=== PATIENT | male | born 1960 | race African-American/Black ===

== ENCOUNTER 2016-11-21 09:25 | Inpatient (IN) | payer OTHER, MEDICARE ==
[2016-11-21] VITALS (9 sets, daily range): BP systolic 130–194; BP diastolic 50–84; PULSE 74–83; RESP 16–20; TEMP 97.8–98.9; O2SAT 94–100
[~2016-11-21] VITALS: Ht 188 cm; Wt 118.0 kg
[~2016-11-21 09:25] MED LIST: ACYC5OIN4 TOPICAL; ASPI81TA5 PO; BUPR1TAB29 PO; CIAL20TA PO; CYCL1TAB29 PO; FLUT50SP EACH NARE; HYDR-3801 PO; LABE300T PO; MINO2.5T PO; NIFE60TA58 PO; TERA2CAP3 PO
[2016-11-21] MEDS ORDERED: LOSA50TA PO (10:05)
[2016-11-21] MEDS ORDERED: BUPR150T3 PO (10:05)
[2016-11-21] MEDS ORDERED: MIRA0.25 PO (10:05)
[2016-11-21] MEDS ORDERED: BUME2TAB PO (10:05)
[2016-11-21] MEDS ORDERED: PERC5TAB12 PO (10:05)
[2016-11-21] MEDS ORDERED: CLON0.2T PO (10:05)
[2016-11-21] MEDS ORDERED: MIRA3350 PO (10:05)
[2016-11-21] MEDS ORDERED: RANI150T PO (10:05)
[2016-11-21] MEDS ORDERED: SODIUM CHLORIDE 0.9% FLUSH 10 ML FLUSH IVF PRN (10:30)
[2016-11-21] MEDS ORDERED: FAMOTIDINE 20 MG/2 ML VIAL IV PUSH ONE (10:30)
[2016-11-21 10:52] LABS: AUTOMATED NEUTROPHIL # 3.7 TH/MM3 (1.8-7.7); BASOPHIL # 0.1 TH/MM3 (0-0.2); BASOPHIL % 1.2 % (0.0-2.0); EOSINOPHIL # 0.1 TH/MM3 (0-0.4); EOSINOPHIL % 2.5 % (0.0-4.0); LYMPH % 18.4 % (9.0-44.0); MEAN CELL VOLUME 84.4 FL (80.0-100.0); MEAN CORPUSCULAR HEMOGLOBIN 27.7 PG (27.0-34.0); MEAN CORPUSCULAR HGB CONC 32.9 % (32.0-36.0); MONO % 7.1 % (0.0-8.0); NEUT % 70.8 % (16.0-70.0); PLATELET COUNT 194 TH/MM3 (150-450); RED BLOOD COUNT 2.28 MIL/MM3 (4.50-5.90); RED CELL DISTRIBUTION WIDTH 16.2 % (11.6-17.2); WHITE BLOOD COUNT 5.2 TH/MM3 (4.0-11.0)
[2016-11-21 10:54] LABS: BACTERIA, URINE RARE /hpf; BLOOD, URINE NEG (NEG); GLUCOSE,URINE NEG (NEG); KETONE, URINE NEG (NEG); MUCUS URINE FEW /lpf (OCC); NITRITE,URINE NEG (NEG); URINE COLOR LIGHT-YELLOW (YELLW/STRAW)
[2016-11-21 10:59] LABS: HEMO FLAGS DIFF FINAL
[2016-11-21 11:01] LABS: HEMATOCRIT 19.2 % (39.0-51.0)
[2016-11-21 11:02] LABS: APTT (PATIENT) 27.6 SEC (24.3-30.1); PROTHROMBIN TIME - PATIENT 10.9 SEC (9.8-11.6)
[2016-11-21 11:02] LABS: COMMENT (UR) CULT NOT INDICATED; CULTURE IF INDICATED CULT NOT INDICATED
--- NOTE | 2016-11-21 11:23 | PD ---
HPI Chief Complaint: GI Complaint Time Seen by Provider: 10:22 Travel History International Travel<30 days: No Contact w/Intl Traveler<30days: No Traveled to known affect area: No History of Present Illness HPI This is a 56-year-old male who presents today with complaints of weakness and dizziness and shortness of breath on exertion. The patient also reports black tarry stools times one and half days. The patient has a history of end-stage renal disease and is dialysis dependent. Last dialysis was yesterday. She denies chest pain, chest pressure. He reports shortness of breath on exertion. The patient takes intermittent aspirin. He is not on any other blood thinners. No history of previous GI bleed. He reports he was in the process of getting set up for a GI appointment and when the GI physician her that he was having black tarry stools, she is recommended he come to the ER for evaluation. PFSH Past Medical History Diminished Hearing: No Hypertension: Yes Renal Failure: Yes (DIALYSIS M,W,F) Ulcer: Yes Tetanus Vaccination: > 5 Years Influenza Vaccination: No Past Surgical History Appendectomy: Yes Other Surgery: Yes (AV FISTULA L UPPER ARM) Social History Alcohol Use: No Tobacco Use: No Substance Use: No Allergies-Medications (Allergen,Severity, Reaction): Coded Allergies: cefazolin (Unverified Allergy, Severe, 11/21/16) morphine (Unverified Allergy, Severe, 11/21/16) Reported Meds & Prescriptions Reported Meds & Active Scripts Active Reported Ranitidine (Ranitidine HCl) 150 Mg Tab 150 Mg PO BID Percocet (Oxycodone-Acetaminophen) 5-325 mg Tab 1 Tab PO Q8HR PRN Mirapex (Pramipexole Dihydrochloride) 0.25 Mg Tab 0.25 Mg PO HS Miralax Powder (Polyethylene Glycol 3350 Powder) 17 Gm Powd 17 Gm PO DAILY Mix and dissolve one measuring cap-ful (17 grams) in water or juice. Losartan (Losartan Potassium) 50 Mg Tab 50 Mg PO BID Clonidine (Clonidine HCl) 0.2 Mg Tab 0.2 Mg PO BID Bupropion HCl ER 24 HR (Bupropion HCl) 150 Mg Tab 150 Mg PO DAILY Bumetanide 2 Mg Tab 2 Mg PO DAILY Fluticasone Nasal [place] 50 Mcg/Act Naspr 50 Mcg EACH NARE BID 50 mcg/spray Flexeril (Cyclobenzaprine HCl) 10 Mg Tab 10 Mg PO TID PRN Minoxidil 2.5 Mg Tab 2.5 Mg PO BID Nifedipine ER 24 HR (Nifedipine) 60 Mg Tab 60 Mg PO BID Acyclovir Topical (Acyclovir) 5% Oint 1 Applic TOPICAL Q3HR Labetalol (Labetalol HCl) 300 Mg Tab 300 Mg PO TID Hydralazine (Hydralazine HCl) 100 Mg Tab 100 Mg PO TID Take with meals Aspirin DR (Aspirin) 81 Mg Tabdr 81 Mg PO DAILY Cialis (Tadalafil) 20 Mg Tab 20 Mg PO DAILY PRN Do not exceed 1 dose/day. Review of Systems Except as stated in HPI: all other systems reviewed are Neg General / Constitutional: No: Fever, Chills HENT: Positive: Lightheadedness, No: Headaches, Neck Pain Cardiovascular: Positive: Tachycardia, No: Chest Pain or Discomfort, Palpitations Respiratory: No: Cough, Shortness of Breath Gastrointestinal: Positive: Other (black colored stools), No: Nausea, Vomiting , Abdominal Pain Genitourinary: Positive: Other (increased urine output), No: Dysuria Musculoskeletal: Positive: Weakness (generalized), No: Pain Neurologic: Positive: Weakness (generalized), Dizziness, No: Headache, Change in Mentation Physical Exam Narrative GENERAL: Well-developed well-nourished gentleman in no acute rest her distress. SKIN: Focused skin assessment warm/dry. HEAD: Atraumatic. Normocephalic. EYES: Pupils equal and round. No scleral icterus. No injection or drainage. ENT: No nasal bleeding or discharge. Mucous membranes pink and pale. Supple. NECK: Trachea midline. No JVD. CARDIOVASCULAR: Tachycardic with normal rhythm.. No murmur appreciated. RESPIRATORY: No accessory muscle use. Clear to auscultation. Breath sounds equal bilaterally. GASTROINTESTINAL: Abdomen soft, non-tender, nondistended. Hepatic and splenic margins not palpable. RECTAL EXAM: No masses or tenderness, stool is black. Heme positive. MUSCULOSKELETAL: No obvious deformities. No clubbing. No cyanosis. No edema. There is an 80 fistula in his left before meals. Positive thrill. NEUROLOGICAL: Awake and alert. No obvious cranial nerve deficits. Motor grossly within normal limits. Normal speech. PSYCHIATRIC: Appropriate mood and affect; insight and judgment normal. Data Data Last Documented VS Vital Signs Date Time Temp Pulse Resp B/P (MAP) Pulse Ox O2 Delivery O2 Flow Rate FiO2 11/21/16 09:30 98.0 75 16 155/71 (99) 100 Orders Orders Complete Blood Count With Diff (11/21/16 10:22) Comprehensive Metabolic Panel (11/21/16 10:22) Prothrombin Time / Inr (Pt) (11/21/16 10:22) Act Partial Throm Time (Ptt) (11/21/16 10:22) Urinalysis - C+S If Indicated (11/21/16 10:22) Type And Screen (11/21/16 10:22) Ecg Monitoring (11/21/16 10:22) Iv Access Insert/Monitor (11/21/16 10:22) Oximetry (11/21/16 10:22) Sodium Chloride 0.9% Flush (Ns Flush) (11/21/16 10:30) Famotidine Inj (Pepcid Inj) (11/21/16 10:30) Red Blood Cells (Rbc) (11/21/16 11:19) Blood Product Administration (11/21/16 11:19) Sodium Chlor 0.9% 250 Ml Inj (Ns 250 Ml (11/21/16 11:30) Diphenhydramine Inj (Benadryl Inj) (11/21/16 11:45) Sodium Chloride 0.9... W/Pantoprazole In (11/21/16 12:01) Consult Gastroenterology (11/21/16 ) (Hub Use Only)Inp Phy Cons/Ref (11/21/16 ) Admit To Inpatient (11/21/16 ) Code Status (11/21/16 12:32) Vital Signs (Adult) Q4H (11/21/16 12:32) Activity Oob With Assistance (11/21/16 12:32) Screenplay Writer / Telemetry .CONTINUOUS (11/21/16 12:32) Diet Clear Liquid (11/21/16 Lunch) Sodium Chloride 0.9% Flush (Ns Flush) (11/21/16 12:45) Sodium Chloride 0.9% Flush (Ns Flush) (11/21/16 21:00) Acetaminophen (Tylenol) (11/21/16 12:45) Ondansetron Inj (Zofran Inj) (11/21/16 12:45) Basic Metabolic Panel (Bmp) (11/22/16 06:00) Chest, Single Ap (11/21/16 12:32) Electrocardiogram (11/21/16 12:32) Pt Request For Service (11/21/16 12:32) Scd Bilateral/Knee High [place].BID (11/21/16 12:32) Naloxone Inj (Narcan Inj) (11/21/16 12:45) Magnesium Hydroxide Liq (Milk Of Magnesi (11/21/16 12:45) Inpatient Certification (11/21/16 ) Complete Blood Count With Diff (11/21/16 16:00) Complete Blood Count With Diff (11/22/16 16:00) Complete Blood Count With Diff (11/23/16 16:00) Magnesium (Mg) (11/22/16 06:00) Consult Nephrology (11/21/16 ) Admit Order (Ed Use Only) (11/21/16 12:34) Labs Laboratory Tests Test 11/21/16 10:35 11/21/16 10:40 White Blood Count 5.2 TH/MM3 Red Blood Count 2.28 MIL/MM3 Hemoglobin 6.3 GM/DL Hematocrit 19.2 % Mean Corpuscular Volume 84.4 FL Mean Corpuscular Hemoglobin 27.7 PG Mean Corpuscular Hemoglobin Concent 32.9 % Red Cell Distribution Width 16.2 % Platelet Count 194 TH/MM3 Mean Platelet Volume 8.3 FL Neutrophils (%) (Auto) 70.8 % Lymphocytes (%) (Auto) 18.4 % Monocytes (%) (Auto) 7.1 % Eosinophils (%) (Auto) 2.5 % Basophils (%) (Auto) 1.2 % Neutrophils # (Auto) 3.7 TH/MM3 Lymphocytes # (Auto) 1.0 TH/MM3 Monocytes # (Auto) 0.4 TH/MM3 Eosinophils # (Auto) 0.1 TH/MM3 Basophils # (Auto) 0.1 TH/MM3 CBC Comment DIFF FINAL Differential Comment Prothrombin Time 10.9 SEC Prothromb Time International Ratio 1.0 RATIO Activated Partial Thromboplast Time 27.6 SEC Blood Urea Nitrogen 104 MG/DL Creatinine 9.00 MG/DL Random Glucose 97 MG/DL Total Protein 5.6 GM/DL Albumin 2.8 GM/DL Calcium Level 7.1 MG/DL Alkaline Phosphatase 60 U/L Aspartate Amino Transf (AST/SGOT) 11 U/L Alanine Aminotransferase (ALT/SGPT) 21 U/L Total Bilirubin 0.3 MG/DL Sodium Level 139 MEQ/L Potassium Level 4.0 MEQ/L Chloride Level 104 MEQ/L Carbon Dioxide Level 23.6 MEQ/L Anion Gap 11 MEQ/L Estimat Glomerular Filtration Rate 7 ML/MIN Protein Corrected Calcium 7.9 MG/DL Urine Color LIGHT-YELLOW Urine Turbidity CLEAR Urine pH 5.0 Urine Specific [place] 1.010 Urine Protein 30 mg/dL Urine Glucose (UA) NEG mg/dL Urine Ketones NEG mg/dL Urine Occult Blood NEG Urine Nitrite NEG Urine Bilirubin NEG Urine Urobilinogen LESS THAN 2.0 MG/DL Urine Leukocyte Esterase NEG Urine RBC LESS THAN 1 /hpf Urine WBC LESS THAN 1 /hpf Urine Bacteria RARE /hpf Urine Mucus FEW /lpf Microscopic Urinalysis Comment CULT NOT INDICATED MDM Medical Decision Making Medical Screen Exam Complete: Yes Emergency Medical Condition: Yes Differential Diagnosis GI bleed versus metabolic derangement versus anemia versus Narrative Course This is a 56-year-old male with history of renal failure, dialysis dependent, who presents here with black tarry stools. The patient reports one to 2 days of black tarry stool. He apparently was in the process of getting a GI follow up when the physician at the GI center heard his symptoms, told him to come in and be seen in the emergency department. He presents today with dizziness, exertional shortness breath, lightheadedness and the dark stools. Rectal examination confirms heme positive stool. Hemoglobin is 6.3. He's been typed and crossed for 2 units. He'll be transfused those 2 units of blood. He's been given IV Pepcid 20 mg one dose. There is a call out to the on-call planning feeder. There is also a call out to the [facility] hospitalist. Diagnosis Primary Impression: GI (gastrointestinal hemorrhage) Additional Impressions: Symptomatic anemia end-stage renal disease, dialysis dependent Hypertension Admitting Information Admitting Physician Requests: Admit Dustin Burton MD Nov 21, 2016 11:23
[2016-11-21] MEDS ORDERED: SODIUM CHLOR 0.9% 250 ML INJ 250 ML IV ONE (11:30)
[2016-11-21 11:38] LABS: BICARBONATE 23.6 MEQ/L (21.0-32.0); CALCIUM-PROTEIN CORRECTED 7.9 MG/DL (8.5-10.1); TOTAL BILIRUBIN ADULT 0.3 MG/DL (0.2-1.0)
[2016-11-21] MEDS ORDERED: diphenhydrAMINE HCL 50 MG/ML VIAL IV PUSH ONE (11:45)
--- NOTE | 2016-11-21 12:43 | PD.CONS ---
HPI History of Present Illness This is a 56 year old with ESRD who was told to go to the emergency room for evaluation of nausea/vomiting with dark emesis and dark stools. He gets HD on Mondays, Wednesdays, and Fridays. He started having nausea and vomiting night. He reports that the dark tarry stool also began night. He initially, was not able to keep anything down, but states that he is now tolerating po and he last vomited yesterday around 9:45 am prior to dialysis. He denies any abdominal pain, but states that he has frequent reflux/ heartburn and takes Ranitidine for that. He states that he has had generalized weakness and this has been worsening since evening. He denies any history of peptic ulcer disease. Last EGD/Colonoscopy (01/22/16) for anemia --- > prominent ileocecal valve, four polyps- two removed by snare and 2 fulgurated in the sigmoid, small hemorrhoid, mild gastritis. Pathology revealed antral and fundic type mucosa with mild chronic gastritis, negative for intestinal metaplasia, no helicobacter like bacteria, prominent ileocecal valve normal colonic mucosa, negative for inflammation, viral inclusions, lymphocytic or collagenous colitis, colonic mucosa with a bland smooth muscle proliferation consistent with a leiomyoma. Repeat colonoscopy recommended for 6 months. He denies any history of GI bleeding. He does not take any Aleve/Motrin/Advil, but takes an occasional aspirin. He does not drink ETOH. Of note, he was recently seen in the office on 11/20/16 for possible GIB/heartburn. EGD was scheduled as outpatient. (Sheridan Pastrana) PFSH Past Medical History ESRD, HD Mondays, Wednesdays, Fridays HTN Hx rib fracture Cerebral contusions Right wrist fracture Anemia of chronic disease COPD Chronic back pain Enlarged prostate Depression Osteoarthritis Past Surgical History ORIF right wrist Appendectomy AV fistula (Sheridan Pastrana) Coded Allergies: cefazolin (Unverified Allergy, Severe, 11/21/16) morphine (Unverified Allergy, Severe, 11/21/16) Medications Allergies Coded Allergies Type Severity Reaction Last Updated Verified cefazolin Allergy Severe 11/21/16 No morphine Allergy Severe 11/21/16 No Active Scripts Medications Dose Route/Sig Max Daily Dose Days Date Category Dose Instructions Ranitidine (Ranitidine HCl) 150 Mg Tab 150 Mg PO BID 11/21/16 Reported Percocet (Oxycodone-Acetaminophen) 5-325 mg Tab 1 Tab PO Q8HR PRN 11/21/16 Reported Mirapex (Pramipexole Dihydrochloride) 0.25 Mg Tab 0.25 Mg PO HS 11/21/16 Reported Miralax Powder (Polyethylene Glycol 3350 Powder) 17 Gm Powd 17 Gm PO DAILY 11/21/16 Reported Mix and dissolve one measuring cap-ful (17 grams) in water or juice. Losartan (Losartan Potassium) 50 Mg Tab 50 Mg PO BID 11/21/16 Reported Clonidine (Clonidine HCl) 0.2 Mg Tab 0.2 Mg PO BID 11/21/16 Reported Bupropion HCl ER 24 HR (Bupropion HCl) 150 Mg Tab 150 Mg PO DAILY 11/21/16 Reported Bumetanide 2 Mg Tab 2 Mg PO DAILY 11/21/16 Reported Fluticasone Nasal [place] 50 Mcg/Act Naspr 50 Mcg EACH NARE BID 07/09/16 Reported 50 mcg/spray Flexeril (Cyclobenzaprine HCl) 10 Mg Tab 10 Mg PO TID 07/09/16 Reported Minoxidil 2.5 Mg Tab 2.5 Mg PO BID 07/09/16 Reported Nifedipine ER 24 HR (Nifedipine) 60 Mg Tab 60 Mg PO BID 07/09/16 Reported Acyclovir Topical (Acyclovir) 5% Oint 1 Applic TOPICAL Q3HR 07/09/16 Reported Labetalol (Labetalol HCl) 300 Mg Tab 300 Mg PO TID 07/09/16 Reported Hydralazine (Hydralazine HCl) 100 Mg Tab 100 Mg PO TID 07/09/16 Reported Take with meals Aspirin DR (Aspirin) 81 Mg Tabdr 81 Mg PO DAILY 07/09/16 Reported Cialis (Tadalafil) 20 Mg Tab 20 Mg PO DAILY PRN 07/09/16 Reported Do not exceed 1 dose/day. Family History Mother from colon cancer at age 50. Social History No tobacco No ETOH No illicit drug use (Sheridan Pastrana) Review of Systems Constitutional: COMPLAINS OF: Fatigue, DENIES: Weight loss, Change in appetite Respiratory: DENIES: Cough Cardiovascular: COMPLAINS OF: Lower Extremity Edema, DENIES: Chest pain Gastrointestinal: COMPLAINS OF: Black stools, Nausea, Vomiting, Heartburn, Hematemesis, DENIES: Abdominal pain, Bloody stools, Constipation, Diarrhea, Swelling of Abdomen Musculoskeletal: DENIES: Joint pain Integumentary: DENIES: Abnormal pigmentation Hematologic/lymphatic: DENIES: Bruising Neurologic: DENIES: Headache Psychiatric: DENIES: Confusion (Sheridan Pastrana AGRICULTURE EXTENSION SPECIALIST) GI Exam Vitals I&O Vital Signs Date Time Temp Pulse Resp B/P (MAP) Pulse Ox O2 Delivery O2 Flow Rate FiO2 11/21/16 09:30 98.0 75 16 155/71 (99) 100 Laboratory Test 11/21/16 10:35 11/21/16 10:40 White Blood Count 5.2 TH/MM3 Red Blood Count 2.28 MIL/MM3 Hemoglobin 6.3 GM/DL Hematocrit 19.2 % Mean Corpuscular Volume 84.4 FL Mean Corpuscular Hemoglobin 27.7 PG Mean Corpuscular Hemoglobin Concent 32.9 % Red Cell Distribution Width 16.2 % Platelet Count 194 TH/MM3 Mean Platelet Volume 8.3 FL Neutrophils (%) (Auto) 70.8 % Lymphocytes (%) (Auto) 18.4 % Monocytes (%) (Auto) 7.1 % Eosinophils (%) (Auto) 2.5 % Basophils (%) (Auto) 1.2 % Neutrophils # (Auto) 3.7 TH/MM3 Lymphocytes # (Auto) 1.0 TH/MM3 Monocytes # (Auto) 0.4 TH/MM3 Eosinophils # (Auto) 0.1 TH/MM3 Basophils # (Auto) 0.1 TH/MM3 CBC Comment DIFF FINAL Differential Comment Prothrombin Time 10.9 SEC Prothromb Time International Ratio 1.0 RATIO Activated Partial Thromboplast Time 27.6 SEC Blood Urea Nitrogen 104 MG/DL Creatinine 9.00 MG/DL Random Glucose 97 MG/DL Total Protein 5.6 GM/DL Albumin 2.8 GM/DL Calcium Level 7.1 MG/DL Alkaline Phosphatase 60 U/L Aspartate Amino Transf (AST/SGOT) 11 U/L Alanine Aminotransferase (ALT/SGPT) 21 U/L Total Bilirubin 0.3 MG/DL Sodium Level 139 MEQ/L Potassium Level 4.0 MEQ/L Chloride Level 104 MEQ/L Carbon Dioxide Level 23.6 MEQ/L Anion Gap 11 MEQ/L Estimat Glomerular Filtration Rate 7 ML/MIN Protein Corrected Calcium 7.9 MG/DL Urine Color LIGHT-YELLOW Urine Turbidity CLEAR Urine pH 5.0 Urine Specific [place] 1.010 Urine Protein 30 mg/dL Urine Glucose (UA) NEG mg/dL Urine Ketones NEG mg/dL Urine Occult Blood NEG Urine Nitrite NEG Urine Bilirubin NEG Urine Urobilinogen LESS THAN 2.0 MG/DL Urine Leukocyte Esterase NEG Urine RBC LESS THAN 1 /hpf Urine WBC LESS THAN 1 /hpf Urine Bacteria RARE /hpf Urine Mucus FEW /lpf Microscopic Urinalysis Comment CULT NOT INDICATED Physical Examination HEENT: Normocephalic; atraumatic; no jaundice. CHEST: CTA CARDIAC: RRR. ABDOMEN: Soft, nondistended, nontender; no hepatosplenomegaly; bowel sounds are present in all four quadrants. EXTREMITIES: BLE edema. SKIN: Normal; no rash; no jaundice. 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 (Sheridan Pastrana) Assessment and Plan Plan ASSESSMENT: - Upper GIB with dark emesis and melanotic stool. Pt reports nausea/vomiting with dark emesis and dark tarry stool since . No further vomiting since yesterday 9:45 am. HH 6.3/19.2. 2units PRBC ordered. Add Protonix Gtt. Clear liquids. - GERD. PPI - Severe anemia, acute blood loss. Baseline Hgb ~10.0. HH 6.3/19.2. EGD/ Colonoscopy (01/22/16) for anemia ---> prominent ileocecal valve, four polyps- two removed by snare and 2 fulgurated in the sigmoid, small hemorrhoid, mild gastritis. Pathology revealed antral and fundic type mucosa with mild chronic gastritis, negative for intestinal metaplasia, no helicobacter like bacteria, prominent ileocecal valve normal colonic mucosa, negative for inflammation, viral inclusions, lymphocytic or collagenous colitis, colonic mucosa with a bland smooth muscle proliferation consistent with a leiomyoma. Repeat colonoscopy recommended for 6 months. - Prominent ileocecal valve. Path with normal colonic mucosa. Was due for repeat colonoscopy in July of 2016. D/W patient/- okay with having colonoscopy with egd tomorrow. - ESRD. HD Mondays/Wednesdays/Fridays - HTN, COPD, per attending. PLAN: - Plan for egd/colonoscopy in am - Obtain consents - Clear liquids - NPO after MN - Golytely prep - 2 units PRBC - Monitor HH - Transfuse as necessary - NGT to LIWS if n/v - Notify GI of active bleeding - Supportive care - Further recommendations to follow based on results of above - Pt seen and examined by Dr. Zavala and myself and this note is written on his behalf (Sheridan Pastrana) Physician Comments Seen and examined with NICOLAS, no active bleeding at this time. Egd/colonoscopy planned. Will follow, thankyou (Vijay Zavala MD) Sheridan Pastrana Nov 21, 2016 12:43 Vijay Zavala MD Nov 21, 2016 15:39
[2016-11-21] MEDS ORDERED: MAGNESIUM HYDROXIDE SUSP 30 ML CUP PO PRN (12:45)
[2016-11-21] MEDS ORDERED: CYCLOBENZAPRINE HCL 10 MG TAB PO PRN (12:45)
[2016-11-21] MEDS ORDERED: ACETAMINOPHEN 325 MG TAB PO PRN ×2 (12:45→13:00)
[2016-11-21] MEDS ORDERED: SODIUM CHLORIDE 0.9% FLUSH 10 ML FLUSH IV FLUSH PRN ×2 (12:45→13:00)
[2016-11-21] MEDS ORDERED: NALOXONE HCL 0.4 MG/ML AMP IV PUSH PRN (12:45)
[2016-11-21] MEDS: PANTOPRAZOLE INJ 80 MG in SODIUM CHLORIDE 0.9% INJ 100 ML IV SCH ×2 (12:55→21:20)
[2016-11-21] MEDS ORDERED: SODIUM CHLOR 0.9% 1000 ML INJ 1,000 ML OTHER PRN ×2 (12:56)
[2016-11-21] MEDS ORDERED: SODIUM CHLOR 0.9% 1000 ML INJ 1,000 ML IV PRN (12:56)
[2016-11-21] MEDS ORDERED: GENTAMICIN SULFATE (DIALYSIS USE ONLY) 20 MG/2 ML VIAL OTHER PRN (13:00)
[2016-11-21] MEDS ORDERED: HEPARIN SODIUM - IV 10,000 UNITS/10 ML VIAL IV FLUSH PRN (13:00)
[2016-11-21] MEDS ORDERED: NITROGLYCERIN 0.4 MG SL 25 TABS/BTL SL PRN (13:00)
[2016-11-21] MEDS: LABETALOL HCL 300 MG TAB PO SCH ×3 (13:00→20:12)
[2016-11-21] MEDS ORDERED: GELATIN 12 MM/7 MM FOAM TOP PRN (13:00)
[2016-11-21] MEDS ORDERED: cloNIDine HCL 0.1 MG TAB PO PRN (13:00)
[2016-11-21] MEDS ORDERED: ALBUMIN 25% INJ 100 ML IV PRN (13:00)
[2016-11-21] MEDS ORDERED: HEPARIN SODIUM - IV 10,000 UNITS/10 ML VIAL PRN (13:00)
[2016-11-21] MEDS ORDERED: MANNITOL 12.5 GM/50 ML VIAL IV PRN (13:00)
[2016-11-21] MEDS ORDERED: ONDANSETRON HCL 4 MG/2 ML VIAL IV PUSH PRN (13:00)
[2016-11-21] MEDS: hydrALAZINE HCL 100 MG TAB PO SCH ×3 (13:00→20:12)
--- NOTE | 2016-11-21 13:25 | RADRPT ---
EXAM DATE/TIME: 11/21/2016 12:51 [facility] COMPARISON: No previous studies available for comparison. INDICATIONS : Short of breath. MEDICAL HISTORY : None. SURGICAL HISTORY : None. ENCOUNTER: Initial ACUITY: 1 day PAIN SCORE: 0/10 LOCATION: Bilateral chest FINDINGS: The cardiac silhouette is enlarged in transverse diameter. The lungs are free of acute parenchymal op acity. No effusions are identified. Osseous structures are intact. CONCLUSION: Cardiomegaly. No acute cardiopulmonary disease. Vijay Styles MD on November 21, 2016 at 13:24 Board Certified Radiologist. This report was verified electronically.
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
[2016-11-21] MEDS ORDERED: PANTOPRAZOLE INJ 80 MG in SODIUM CHLORIDE 0.9% INJ 100 ML IV SCH (14:00)
--- NOTE | 2016-11-21 14:31 | EKG ---
Date Performed: 11/21/2016 Time Performed: 13:04:02 PTAGE: 56 years EKG: Sinus rhythm NONSPECIFIC T-WAVE ABNORMALITY BORDERLINE ECG NO PREVIOUS TRACING DOCTOR: Michael Martinez Interpretating Date/Time 11/21/2016 14:30:54
[2016-11-21] MEDS ORDERED: PEG (High)/E-LYTE SOLN 4000 ML BTL PO ONE (16:00)
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
[2016-11-21] MEDS: FAMOTIDINE 20 MG TAB PO SCH (20:09)
[2016-11-21] MEDS: NIFEdipine 60 MG SUSTAINED RELEASE TAB PO SCH (20:12)
[2016-11-21] MEDS: LOSARTAN 50 MG TAB PO SCH (20:12)
[2016-11-21] MEDS: PRAMIPEXOLE DIHYDROCHLORIDE 0.25 MG TAB PO SCH (20:13)
[2016-11-21] MEDS: MINOXIDIL 2.5 MG TAB PO SCH (20:13)
[2016-11-21] MEDS: cloNIDine HCL 0.2 MG TAB PO SCH (20:14)
[2016-11-21] MEDS: diphenhydrAMINE HCL 25 MG CAP PO PRN (20:21)
[2016-11-21 21:07] LABS: BLOOD, URINE NEG (NEG); GLUCOSE,URINE NEG (NEG); KETONE, URINE NEG (NEG); NITRITE,URINE NEG (NEG); SQUAMOUS EPITHELIAL CELL URINE <1 /hpf (0-5); URINE COLOR LIGHT-YELLOW (YELLW/STRAW)
[2016-11-21 21:14] LABS: COMMENT (UR) CULT NOT INDICATED; CULTURE IF INDICATED CULT NOT INDICATED
[2016-11-21] MEDS: SODIUM CHLORIDE 0.9% FLUSH 10 ML FLUSH IV FLUSH SCH (21:20)
[2016-11-21 21:25] LABS: AUTOMATED NEUTROPHIL # 3.4 TH/MM3 (1.8-7.7); BASOPHIL # 0.1 TH/MM3 (0-0.2); BASOPHIL % 1.2 % (0.0-2.0); EOSINOPHIL # 0.2 TH/MM3 (0-0.4); EOSINOPHIL % 3.5 % (0.0-4.0); HEMO FLAGS DIFF FINAL; LYMPH % 30.2 % (9.0-44.0); LYMPHOCYTE # 1.9 TH/MM3 (1.0-4.8); MEAN CELL VOLUME 84.2 FL (80.0-100.0); MEAN CORPUSCULAR HEMOGLOBIN 28.2 PG (27.0-34.0); MEAN CORPUSCULAR HGB CONC 33.5 % (32.0-36.0); MONO % 11.1 % (0.0-8.0); PLATELET COUNT 179 TH/MM3 (150-450); RED BLOOD COUNT 2.62 MIL/MM3 (4.50-5.90); RED CELL DISTRIBUTION WIDTH 15.7 % (11.6-17.2); WHITE BLOOD COUNT 6.3 TH/MM3 (4.0-11.0)
[2016-11-21] MEDS: ONDANSETRON HCL 4 MG/2 ML VIAL IVP PRN (23:39)
[2016-11-22] VITALS (12 sets, daily range): BP systolic 115–151; BP diastolic 57–77; PULSE 66–88; RESP 18–21; TEMP 97.4–98; O2SAT 95–100
[2016-11-22] MEDS ORDERED: SODIUM CHLOR 0.9% 250 ML INJ 250 ML IV ONE (00:15)
[2016-11-22] MEDS ORDERED: FUROSEMIDE 20 MG/2 ML VIAL IV PUSH SCH (00:15)
[2016-11-22] MEDS ORDERED: ACETAMINOPHEN 325 MG TAB PO PRN (00:15)
[2016-11-22] MEDS ORDERED: diphenhydrAMINE HCL 25 MG CAP PO PRN (00:15)
[2016-11-22] MEDS: SODIUM CHLORIDE 0.9% FLUSH 10 ML FLUSH IV FLUSH SCH ×2 (07:59→21:02)
[2016-11-22] MEDS: FAMOTIDINE 20 MG TAB PO SCH (08:00)
[2016-11-22] MEDS: BUMETANIDE 1 MG TAB PO SCH (08:00)
[2016-11-22] MEDS: LABETALOL HCL 300 MG TAB PO SCH ×3 (08:00→17:57)
[2016-11-22] MEDS: MINOXIDIL 2.5 MG TAB PO SCH ×2 (08:01→21:01)
[2016-11-22] MEDS: hydrALAZINE HCL 100 MG TAB PO SCH ×3 (08:01→17:57)
[2016-11-22] MEDS: NIFEdipine 60 MG SUSTAINED RELEASE TAB PO SCH ×2 (08:01→21:01)
[2016-11-22] MEDS: buPROPion HCL 150 MG SUSTAINED RELEASE TAB PO SCH (08:01)
[2016-11-22] MEDS: LOSARTAN 50 MG TAB PO SCH ×2 (08:02→21:01)
[2016-11-22] MEDS: cloNIDine HCL 0.2 MG TAB PO SCH ×2 (08:02→21:00)
[2016-11-22] MEDS: POLYETHYLENE GLYCOL 17 GM PKG PO SCH (08:02)
[2016-11-22] MEDS ORDERED: ASPIRIN EC 81 MG TABEC PO SCH (09:00)
[2016-11-22] MEDS: diphenhydrAMINE HCL 25 MG CAP PO PRN ×2 (09:16→23:47)
[2016-11-22] MEDS: PANTOPRAZOLE INJ 80 MG in SODIUM CHLORIDE 0.9% INJ 100 ML IV SCH (09:16)
--- NOTE | 2016-11-22 10:30 | HHI.NPPN ---
Subjective Additional Remarks No acute complaints, tired this morning - for endoscopy today Objective Data Data Vital Signs Date Time Temp Pulse Resp B/P (MAP) Pulse Ox O2 Delivery O2 Flow Rate FiO2 11/22/16 08:00 97.6 68 20 151/70 (97) 95 11/22/16 05:30 97.6 80 18 146/70 (95) 96 11/22/16 05:13 98.0 77 20 144/77 (99) 96 11/22/16 04:50 97.5 79 20 144/62 96 11/22/16 01:42 97.8 88 20 134/65 100 11/22/16 01:16 97.4 81 20 135/65 97 11/22/16 00:00 97.4 77 21 136/61 (86) 98 11/21/16 20:56 94 21 11/21/16 20:00 98.9 79 20 182/78 (112) 94 11/21/16 20:00 78 11/21/16 17:17 98.2 83 20 130/50 95 11/21/16 16:00 98.2 83 20 130/50 (76) 95 11/21/16 16:00 98.2 83 20 130/50 95 11/21/16 13:45 97.8 80 20 194/84 (120) 95 11/21/16 13:20 11/21/16 13:07 80 16 175/83 (113) 97 Room Air 11/21/16 13:04 98.6 75 20 175/83 98 11/21/16 12:50 98.6 74 20 184/84 96 -: 11/21/16210611/21/16 1035 Physical Exam General Appearance: Well Developed, Well Nourished, No Acute Distress Eyes Eye Exam: Pupils Equal Throat Throat Exam: Oral Mucosa [place] & Moist Neck Neck Exam: Neck Supple Pulmonary Resp Exam: Clear Bilaterally Cardiology CV Exam: Regular, Normal Sinus Rhythm Gastrointestinal/Abdomen GI Exam: Soft, Non-Tender, Bowel Sounds Present Integumentary Skin Exam: Warm, Dry, Intact Extremeties Extremities Exam: Moderate Edema Neurologic Neuro Exam: Alert, Awake, Oriented, Speech Clear Psychiatric Psych Exam: Appropriate Responses Assessment/Plan Problem List: (1) ESRD (end stage renal disease) on dialysis ICD Codes: N18.6 - End stage renal disease; Z99.2 - Dependence on renal dialysis Status: Acute Plan: ESRD MWF - follows with [facility]. Bar in [facility]. Last HD done outpatient Wednesday. Volume status, electrolytes stable - next HD tomorrow, continue MWF HD. He has had an elevated BUN in the setting of GI bleed. Chronic lower extremity edema - on bumex Had some dysuria yesterday -resolved now, urine cultures negative (2) GI (gastrointestinal hemorrhage) ICD Codes: K92.2 - Gastrointestinal hemorrhage, unspecified Status: Acute Plan: Transfused yesterday. Plan is for endoscopy and colonoscopy today with GI. Continue to monitor hemoglobin (3) Hypertension ICD Codes: I10 - Essential (primary) hypertension Status: Acute Plan: BP stable. Continue Minoxidil, nifedipine, hydralazine, Losartan and clonidine. Ar Guardado MD Nov 22, 2016 10:30
[2016-11-22] MEDS ORDERED: EPINEPHrine HCL (1:10,000) 1 MG/10 ML SYRINGE OTHER ONE (11:43)
[2016-11-22] MEDS ORDERED: SUGAMMADEX SODIUM 200 MG/2 ML VIAL IV PUSH ONE ×2 (11:48)
--- NOTE | 2016-11-22 11:50 | GIPROC ---
[facility] [address] [facility]. [facility], [address] EGD PROCEDURE REPORT EXAM DATE: 11/22/2016 PATIENT NAME: Ajay Granado MR #: [id number] BIRTHDATE: 1960 ATTENDING: Vijay Zavala MD ORDER #: [id number] OFFICE LEAD: Lillian Rojo STATUS: inpatient INDICATIONS: The patient is a 56 yr old male here for an EGD due to melena and hematemesis PROCEDURE PERFORMED: EGD w/ ablation EGD w/ directed submucosal injection(s), any substance MEDICATIONS: None and Per Anesthesia. TOPICAL ANESTHETIC: CONSENT: The patient understands the risks and benefits of the procedure and understands that these risks include, but are not limited to: sedation, allergic reaction, infection, perforation and/or bleeding. Alternative means of evaluation and treatment include, among others: physical exam, x-rays, and/or surgical intervention. The patient elects to proceed with this endoscopic procedure. medical equipment was checked for proper function. Hand hygiene and appropriate measures for infection prevention was taken. After the risks, benefits and alternatives of the procedure were thoroughly explained, Informed consent was verified, confirmed and timeout was successfully executed by the treatment team. The patient was anesthetized with topical anesthesia and the Pentax [id number] endoscope was introduced through the mouth and advanced to the second portion of the duodenum. Retroflexed views revealed no abnormalities The gastroscope was then slowly withdrawn and removed. ESOPHAGUS: There was [place] Class A esophagitis noted. STOMACH: A single non-bleeding and deep ulcer ranging between 5-9mm in size with heaped up edges and a visible vessel was found in the gastric antrum. Argon plasma coagulation was applied to the site. With complete hemostasis achieved. There was severe gastritis in the gastric antrum. Submucosal injection of 3ml of epinephrine 1:10,000 was performed around the bleeding site with complete hemostasis achieved. DUODENUM: The duodenal mucosa appeared normal in the bulb and second portion of the duodenum. ADVERSE EVENTS: There were no complications. IMPRESSIONS: 1. There was [place] Class A esophagitis noted 2. Single ulcer ranging between 5-9mm in size was found in the gastric antrum; Argon plasma coagulation was applied to the site; with complete hemostasis achieved 3. There was gastritis in the gastric antrum 4. Normal duodenal mucosa in the bulb and second portion of the duodenum 5. Retroflexed views revealed no abnormalities RECOMMENDATIONS: 1. Anti-reflux regimen 2. Continue PPI 3. Avoid NSAIDS PATIENT CONDITION: stable DISPOSITION: Inpatient REPEAT EXAM: Return 1 month EGD Vijay Zavala MD eSigned: Vijay Zavala MD 11/22/2016 11:50 AM cc: PATIENT NAME: Ajay Granado MR#: [id number]
--- NOTE | 2016-11-22 11:52 | GIPROC ---
[facility] [address] [facility]. [facility], [address] COLONOSCOPY PROCEDURE REPORT EXAM DATE: 11/22/2016 PATIENT NAME: Ajay Granado MR #: [id number] BIRTHDATE: 1960 ENDOSCOPIST: Vijay Zavala MD ORDER #: [id number] TRUSTEE OF ESTATE: Lillian Rojo and Ely De León STATUS: inpatient INDICATIONS: The patient is a 56 yr old male here for a colonoscopy due to melena and iron deficiency anemia PROCEDURE PERFORMED: Colonoscopy, incomplete MEDICATIONS: None and Per Anesthesia. PREP QUALITY: poor PREP TYPE:GoLytely ESTIMATED BLOOD LOSS: None CONSENT: The patient understands the risks and benefits of the procedure and understands that these risks include, but are not limited to: sedation, allergic reaction, infection, perforation and/or bleeding. Alternative means of evaluation and treatment include, among others: physical exam, x-rays, and/or surgical intervention. The patient elects to proceed with this endoscopic procedure. medical equipment was checked for proper function. Hand hygiene and appropriate measures for infection prevention was taken. After the risks, benefits and alternatives of the procedure were thoroughly explained, Informed consent was verified, confirmed and timeout was successfully executed by the treatment team. A digital exam revealed external hemorrhoids The Pentax [id number] endoscope was introduced through the anus and advanced to the sigmoid colon. The instrument was then slowly withdrawn as the colon was fully examined. COLON FINDINGS: Poor prep, inadequate exam. Retroflexed views revealed internal hemorrhoids and Retroflexed views revealed medium internal hemorrhoids The scope was then completely withdrawn from the patient and the procedure terminated. ADVERSE EVENTS: There were no complications. IMPRESSIONS: 1. Poor prep, inadequate exam 2. Retroflexed views revealed internal hemorrhoids 3. Retroflexed views revealed medium internal hemorrhoids 4. Revealed external hemorrhoids RECOMMENDATIONS: 1. Continue surveillance 2. Yearly hemoccult RECALL: Return 1 month Colonoscopy Vijay Zavala MD eSigned: Vijay Zavala MD 11/22/2016 11:51 AM cc: Yara Bolanos M.D.
[2016-11-22] MEDS ORDERED: LIDOCAINE HCL 1% PF 5 ML AMPULE OTHER ONE ×2 (12:00)
[2016-11-22] MEDS ORDERED: ePHEDrine/NS 25 MG/5 ML SYR IV ONE ×2 (12:00)
[2016-11-22] MEDS ORDERED: NORMOSOL R INJ 1,000 ML IV ONE (12:00)
[2016-11-22] MEDS ORDERED: PHENYLEPH/NS 1000 MCG/10 ML SYR IV ONE ×2 (12:00)
[2016-11-22] MEDS ORDERED: GLYCOPYRROLATE 1 MG/5 ML SYRINGE IV PUSH ONE ×2 (12:00)
[2016-11-22] MEDS ORDERED: ROCURONIUM INJ 50 MG/5 ML SYRINGE IV PUSH ONE ×2 (12:00)
[2016-11-22] MEDS ORDERED: PROPOFOL 200 MG/20 ML AMP IV ONE ×2 (12:00)
[2016-11-22] MEDS ORDERED: *ONDANSETRON 4 MG VIAL PERIprocedural Use ONLY ONE (12:21)
[2016-11-22] MEDS ORDERED: DO NOT ADM ANY ANTICOAGULANT DRUGS PRN (12:30)
--- NOTE | 2016-11-22 15:14 | HHI.PR ---
Subjective Remarks Patient with complaints of indigestion/burping frequently also has sore throat Objective Vitals Vital Signs Date Time Temp Pulse Resp B/P (MAP) Pulse Ox O2 Delivery O2 Flow Rate FiO2 11/22/16 13:00 97.8 69 20 115/57 (76) 96 11/22/16 12:15 69 14 111/53 (72) 100 Nasal Cannula 2 11/22/16 12:05 69 14 115/54 (74) 95 Nasal Cannula 2 11/22/16 11:55 98.0 74 14 114/85 (95) 96 Nasal Cannula 2 11/22/16 08:00 97.6 68 20 151/70 (97) 95 11/22/16 05:30 97.6 80 18 146/70 (95) 96 11/22/16 05:13 98.0 77 20 144/77 (99) 96 11/22/16 04:50 97.5 79 20 144/62 96 11/22/16 01:42 97.8 88 20 134/65 100 11/22/16 01:16 97.4 81 20 135/65 97 11/22/16 00:00 97.4 77 21 136/61 (86) 98 11/21/16 20:56 94 21 11/21/16 20:00 98.9 79 20 182/78 (112) 94 11/21/16 20:00 78 11/21/16 17:17 98.2 83 20 130/50 95 11/21/16 16:00 98.2 83 20 130/50 (76) 95 11/21/16 16:00 98.2 83 20 130/50 95 11/22/16 11/22/16 11/23/16 14:59 22:59 06:59 Intake Total 100 ml Balance 100 ml Other 100 ml Result Diagram: 11/21/16210611/21/161034 Other Results Laboratory Tests Test 11/21/16 10:35 11/21/16 10:40 11/21/16 18:30 11/21/16 21:07 White Blood Count 5.2 TH/MM3 6.3 TH/MM3 Red Blood Count 2.28 MIL/MM3 2.62 MIL/MM3 Hemoglobin 6.3 GM/DL 7.4 GM/DL Hematocrit 19.2 % 22.0 % Mean Corpuscular Volume 84.4 FL 84.2 FL Mean Corpuscular Hemoglobin 27.7 PG 28.2 PG Mean Corpuscular Hemoglobin Concent 32.9 % 33.5 % Red Cell Distribution Width 16.2 % 15.7 % Platelet Count 194 TH/MM3 179 TH/MM3 Mean Platelet Volume 8.3 FL 8.1 FL Neutrophils (%) (Auto) 70.8 % 54.0 % Lymphocytes (%) (Auto) 18.4 % 30.2 % Monocytes (%) (Auto) 7.1 % 11.1 % Eosinophils (%) (Auto) 2.5 % 3.5 % Basophils (%) (Auto) 1.2 % 1.2 % Neutrophils # (Auto) 3.7 TH/MM3 3.4 TH/MM3 Lymphocytes # (Auto) 1.0 TH/MM3 1.9 TH/MM3 Monocytes # (Auto) 0.4 TH/MM3 0.7 TH/MM3 Eosinophils # (Auto) 0.1 TH/MM3 0.2 TH/MM3 Basophils # (Auto) 0.1 TH/MM3 0.1 TH/MM3 CBC Comment DIFF FINAL DIFF FINAL Differential Comment Prothrombin Time 10.9 SEC Prothromb Time International Ratio 1.0 RATIO Activated Partial Thromboplast Time 27.6 SEC Blood Urea Nitrogen 104 MG/DL Creatinine 9.00 MG/DL Random Glucose 97 MG/DL Total Protein 5.6 GM/DL Albumin 2.8 GM/DL Calcium Level 7.1 MG/DL Alkaline Phosphatase 60 U/L Aspartate Amino Transf (AST/SGOT) 11 U/L Alanine Aminotransferase (ALT/SGPT) 21 U/L Total Bilirubin 0.3 MG/DL Sodium Level 139 MEQ/L Potassium Level 4.0 MEQ/L Chloride Level 104 MEQ/L Carbon Dioxide Level 23.6 MEQ/L Anion Gap 11 MEQ/L Estimat Glomerular Filtration Rate 7 ML/MIN Protein Corrected Calcium 7.9 MG/DL Urine Color LIGHT-YELLOW LIGHT-YELLOW Urine Turbidity CLEAR CLEAR Urine pH 5.0 5.0 Urine Specific [place] 1.010 1.009 Urine Protein 30 mg/dL 30 mg/dL Urine Glucose (UA) NEG mg/dL NEG mg/dL Urine Ketones NEG mg/dL NEG mg/dL Urine Occult Blood NEG NEG Urine Nitrite NEG NEG Urine Bilirubin NEG NEG Urine Urobilinogen LESS THAN 2.0 MG/DL LESS THAN 2.0 MG/DL Urine Leukocyte Esterase NEG NEG Urine RBC LESS THAN 1 /hpf Urine WBC LESS THAN 1 /hpf 1 /hpf Urine Bacteria RARE /hpf Urine Mucus FEW /lpf Microscopic Urinalysis Comment CULT NOT INDICATED CULT NOT INDICATED Urine Squamous Epithelial Cells <1 /hpf Imaging Last Impressions Chest X-Ray 11/21/16 1232 Signed Impressions: Service Date/Time: Monday, November 21, 2016 12:51 - CONCLUSION: Cardiomegaly. No acute cardiopulmonary disease. Vijay Styles MD Objective Remarks GENERAL: This is a well-nourished, well-developed patient, in no apparent distress. SKIN: No rashes, ecchymoses or lesions. Cool and dry. FARIDA fistula with bruit and thrill CARDIOVASCULAR: Regular rate and rhythm RESPIRATORY: Clear to auscultation. GASTROINTESTINAL: Abdomen soft, non-tender, nondistended. MUSCULOSKELETAL: BLE 2 + edema. No joint tenderness, effusion, or edema noted. No calf tenderness. Negative Homans sign bilaterally. NEUROLOGICAL: Awake and alert. No focal deficits. Motor and sensory grossly within normal limits. Five out of 5 muscle strength in all muscle groups. Normal speech. A/P Problem List: (1) GI bleed ICD Codes: K92.2 - Gastrointestinal hemorrhage, unspecified Status: Acute Plan: GI bleed Symptomatic anemia - hgb 6.3, hematocrit 19.2 - serial H&H - 2 units PRBC - Protonix drip initiated by ER - GI consult - S/P EGD and Colonoscopy: impression: 1. There was LA Class A esophagitis noted 2. Single ulcer ranging between 5-9mm in size was found in the gastric antrum; Argon plasma coagulation was applied to the site; with complete hemostasis achieved 3. There was gastritis in the gastric antrum 4. Normal duodenal mucosa in the bulb and second portion of the duodenum 5. Retroflexed views revealed no abnormalities GI recommendations: 1. Anti-reflux regimen 2. Continue PPI 3. Avoid NSAIDS Return 1 month EGD Started Protonix 40 mg PO BID added simethicone PRN added Chloraseptic spray PRN ESRD Patient follows with Dr. Bar outpatient, HD ,, - consult nephrology - plan for HD Wednesday HTN - continue home medications including Minoxidil, nifedipine, hydralazine, Losartan and clonidine - monitor trend Dysuria - discussed with Dr. Guardado - will repeat UA C&S if indicated BPH - continue home medication COPD- not in acute exacerbation - continue home medications Depression - Continue home medications Plan to DC home tomorrow after HD DVT prophylaxis with SCDs avoid chemical DVT prophylaxis due to GI bleed (2) Symptomatic anemia ICD Codes: D64.9 - Anemia, unspecified Status: Acute (3) ESRD (end stage renal disease) on dialysis ICD Codes: N18.6 - End stage renal disease; Z99.2 - Dependence on renal dialysis Status: Chronic (4) BPH (benign prostatic hyperplasia) ICD Codes: N40.0 - Benign prostatic hyperplasia without lower urinary tract symptoms Status: Chronic (5) COPD (chronic obstructive pulmonary disease) ICD Codes: J44.9 - Chronic obstructive pulmonary disease, unspecified Status: Chronic (6) Depression ICD Codes: F32.9 - Major depressive disorder, single episode, unspecified Status: Chronic (7) Hypertension ICD Codes: I10 - Essential (primary) hypertension Status: Chronic Assessment and Plan Patient examined. Assessment and plan formulated with Leonarda Rodriguez PA-C. I agree with the above. HD on 11/23/16. Anticipate discharge to home 11/23 if Hg remains stable. Leonarda Rodriguez Nov 22, 2016 15:14 Son Garza DO Nov 25, 2016 11:34
[2016-11-22] MEDS ORDERED: PHENOL 1.4% SOLN 180 ML BTL OROPHARYNG PRN (15:45)
[2016-11-22] MEDS: SIMETHICONE 125 MG CHEWABLE TAB PO SCH ×2 (15:55→21:14)
[2016-11-22] MEDS: PANTOPRAZOLE SOD 40 MG DELAYED RELEASE TAB PO SCH (21:01)
[2016-11-22] MEDS: PRAMIPEXOLE DIHYDROCHLORIDE 0.25 MG TAB PO SCH (21:01)
[2016-11-22] MEDS: oxyCODONE/ACETAMINOPHEN 5 MG/325 MG TAB PO PRN (21:14)
[2016-11-23] VITALS: BP 118/59; PULSE 75; RESP 20; TEMP 97.6; O2SAT 98
[2016-11-23 04:00] VITALS: BP 134/62; PULSE 73; RESP 20; TEMP 98.1; O2SAT 96
[2016-11-23] MEDS: SIMETHICONE 125 MG CHEWABLE TAB PO SCH ×2 (04:23→16:26)
[2016-11-23 06:09] LABS: BASOPHIL # 0.1 TH/MM3 (0-0.2); BASOPHIL % 1.4 % (0.0-2.0); EOSINOPHIL # 0.3 TH/MM3 (0-0.4); EOSINOPHIL % 4.2 % (0.0-4.0); HEMATOCRIT 24.3 % (39.0-51.0); HEMO FLAGS DIFF FINAL; LYMPH % 20.3 % (9.0-44.0); LYMPHOCYTE # 1.2 TH/MM3 (1.0-4.8); MEAN CELL VOLUME 84.1 FL (80.0-100.0); MEAN CORPUSCULAR HEMOGLOBIN 28.7 PG (27.0-34.0); MEAN CORPUSCULAR HGB CONC 34.1 % (32.0-36.0); NEUT % 66.1 % (16.0-70.0); PLATELET COUNT 192 TH/MM3 (150-450); RED BLOOD COUNT 2.89 MIL/MM3 (4.50-5.90); RED CELL DISTRIBUTION WIDTH 16.8 % (11.6-17.2)
[2016-11-23 06:41] LABS: BICARBONATE 21.5 MEQ/L (21.0-32.0); POTASSIUM 3.4 MEQ/L (3.5-5.1)
[2016-11-23] MEDS: ONDANSETRON HCL 4 MG/2 ML VIAL IVP PRN (07:46)
[2016-11-23 08:00] VITALS: BP 148/65; PULSE 68; PULSE 73; RESP 20; TEMP 98; O2SAT 96
[2016-11-23] MEDS ORDERED: ALUMINUM/MAGNESIUM/SIMETH 30 ML CUP PO ONE ×2 (08:45→15:45)
--- NOTE | 2016-11-23 08:57 | HHI.PR ---
Subjective Remarks still with alot of heartburn...threw up this AM...no coffee grounds taking liquids Objective Vitals heart reg lung cta abd s/nt ext no edema Vital Signs Date Time Temp Pulse Resp B/P (MAP) Pulse Ox O2 Delivery O2 Flow Rate FiO2 11/23/16 04:00 98.1 73 20 134/62 (86) 96 11/23/16 00:00 97.6 75 20 118/59 (78) 98 11/22/16 21:08 97 11/22/16 20:00 70 11/22/16 20:00 97.4 66 20 141/65 (90) 100 11/22/16 17:00 96 11/22/16 16:00 97.6 73 20 144/69 (94) 98 11/22/16 13:00 97.8 69 20 115/57 (76) 96 11/22/16 12:15 69 14 111/53 (72) 100 Nasal Cannula 2 11/22/16 12:05 69 14 115/54 (74) 95 Nasal Cannula 2 11/22/16 11:55 98.0 74 14 114/85 (95) 96 Nasal Cannula 2 Result Diagram: 11/23/16 0458 11/23/16 0458 Imaging Last Impressions Chest X-Ray 11/21/16 1232 Signed Impressions: Service Date/Time: Monday, November 21, 2016 12:51 - CONCLUSION: Cardiomegaly. No acute cardiopulmonary disease. Vijay Styles MD A/P Problem List: (1) GI bleed ICD Codes: K92.2 - Gastrointestinal hemorrhage, unspecified Status: Acute Plan: GI bleed Symptomatic anemia - hgb 6.3, hematocrit 19.2 - serial H&H - 2 units PRBC - Protonix drip initiated by ER - GI consult - S/P EGD and Colonoscopy: impression: 1. There was LA Class A esophagitis noted 2. Single ulcer ranging between 5-9mm in size was found in the gastric antrum; Argon plasma coagulation was applied to the site; with complete hemostasis achieved 3. There was gastritis in the gastric antrum 4. Normal duodenal mucosa in the bulb and second portion of the duodenum 5. Retroflexed views revealed no abnormalities GI recommendations: 1. Anti-reflux regimen 2. Continue PPI 3. Avoid NSAIDS Return 1 month EGD Started Protonix 40 mg PO BID added simethicone PRN Chloraseptic spray PRN maalox x 1 now reevaluate later today for ?d/c home ESRD Patient follows with Dr. Bar outpatient, HD M,W, F - consulted nephrology - plan for HD today HTN - continue home medications including Minoxidil, nifedipine, hydralazine, Losartan and clonidine - monitor trend BPH - continue home medication COPD- not in acute exacerbation - continue home medications Depression - Continue home medications DVT prophylaxis with SCDs avoid chemical DVT prophylaxis due to GI bleed (2) Symptomatic anemia ICD Codes: D64.9 - Anemia, unspecified Status: Acute (3) ESRD (end stage renal disease) on dialysis ICD Codes: N18.6 - End stage renal disease; Z99.2 - Dependence on renal dialysis Status: Chronic (4) BPH (benign prostatic hyperplasia) ICD Codes: N40.0 - Benign prostatic hyperplasia without lower urinary tract symptoms Status: Chronic (5) COPD (chronic obstructive pulmonary disease) ICD Codes: J44.9 - Chronic obstructive pulmonary disease, unspecified Status: Chronic (6) Depression ICD Codes: F32.9 - Major depressive disorder, single episode, unspecified Status: Chronic (7) Hypertension ICD Codes: I10 - Essential (primary) hypertension Status: Chronic Bryson Martinez MD Nov 23, 2016 08:57
[2016-11-23] MEDS: MINOXIDIL 2.5 MG TAB PO SCH (09:00)
[2016-11-23] MEDS: cloNIDine HCL 0.2 MG TAB PO SCH (09:00)
[2016-11-23] MEDS: PANTOPRAZOLE SOD 40 MG DELAYED RELEASE TAB PO SCH (09:00)
[2016-11-23] MEDS: LOSARTAN 50 MG TAB PO SCH (09:00)
[2016-11-23] MEDS: NIFEdipine 60 MG SUSTAINED RELEASE TAB PO SCH (09:00)
[2016-11-23] MEDS: buPROPion HCL 150 MG SUSTAINED RELEASE TAB PO SCH (09:10)
[2016-11-23] MEDS: SODIUM CHLORIDE 0.9% FLUSH 10 ML FLUSH IV FLUSH SCH (09:10)
[2016-11-23] MEDS: POLYETHYLENE GLYCOL 17 GM PKG PO SCH (09:12)
[2016-11-23] MEDS: oxyCODONE/ACETAMINOPHEN 5 MG/325 MG TAB PO PRN ×2 (09:17→16:26)
[2016-11-23 12:48] VITALS: O2SAT 96
[2016-11-23] MEDS ORDERED: PANT40TA3 PO (13:41)
[2016-11-23] MEDS ORDERED: SIME1CHW11 PO (15:46)
--- NOTE | 2016-11-23 15:53 | HHI.DS ---
Discharge Summary Admission Date Nov 21, 2016 at 12:38 Discharge Date: Nov 23, 2016 Admitting Diagnosis GI Bleed, symptomatic anemia, end stage renal disease (1) GI bleed ICD Codes: K92.2 - Gastrointestinal hemorrhage, unspecified Status: Acute (2) Symptomatic anemia ICD Codes: D64.9 - Anemia, unspecified Status: Acute (3) ESRD (end stage renal disease) on dialysis ICD Codes: N18.6 - End stage renal disease; Z99.2 - Dependence on renal dialysis Status: Chronic (4) BPH (benign prostatic hyperplasia) ICD Codes: N40.0 - Benign prostatic hyperplasia without lower urinary tract symptoms Status: Chronic (5) COPD (chronic obstructive pulmonary disease) ICD Codes: J44.9 - Chronic obstructive pulmonary disease, unspecified Status: Chronic (6) Depression ICD Codes: F32.9 - Major depressive disorder, single episode, unspecified Status: Chronic (7) Hypertension ICD Codes: I10 - Essential (primary) hypertension Status: Chronic Consultants Dr. Zavala Procedures S/P EGD and Colonoscopy with Dr. Zavala 11/22/16 Brief History This is a 56 year old with a past medical history which includes: ESRD, HTN, anemia of chronic disease, COPD, chronic back pain BPH and OA. Patient reports that he started having black tarry stools, nausea and vomiting coffee ground emesis night. Patient now has associated weakness, dizziness and shortness of breath on exertion. Patient endorses acid reflux/heartburn, but denies abdominal pain. Patient now complaining of burning with urination which is new since being at the hospital. HD on Mondays, Wednesdays, and Fridays, last HD was Wednesday. Last EGD/Colonoscopy (01/22/16) for anemia ---> prominent ileocecal valve, four polyps- two removed by snare and 2 fulgurated in the sigmoid, small hemorrhoid, mild gastritis. Pathology revealed antral and fundic type mucosa with mild chronic gastritis, negative for intestinal metaplasia, no helicobacter like bacteria, prominent ileocecal valve normal colonic Patient was recently seen in the GI office on 11/20/16 for possible GIB/heartburn. EGD was scheduled as outpatient. CBC/BMP: 11/23/16 0458 11/23/16 0458 Significant Findings Laboratory Tests Test 11/21/16 10:35 11/21/16 10:40 11/21/16 18:30 11/21/16 21:07 Red Blood Count 2.28 MIL/MM3 (4.50-5.90) 2.62 MIL/MM3 (4.50-5.90) Hemoglobin 6.3 GM/DL (13.0-17.0) 7.4 GM/DL (13.0-17.0) Hematocrit 19.2 % (39.0-51.0) 22.0 % (39.0-51.0) Neutrophils (%) (Auto) 70.8 % (16.0-70.0) Blood Urea Nitrogen 104 MG/DL (7-18) Creatinine 9.00 MG/DL (0.60-1.30) Total Protein 5.6 GM/DL (6.4-8.2) Albumin 2.8 GM/DL (3.4-5.0) Calcium Level 7.1 MG/DL (8.5-10.1) Aspartate Amino Transf (AST/SGOT) 11 U/L (15-37) Estimat Glomerular Filtration Rate 7 ML/MIN (>89) Protein Corrected Calcium 7.9 MG/DL (8.5-10.1) Urine Protein 30 mg/dL (NEG-TRACE) 30 mg/dL (NEG-TRACE) Urine Bacteria RARE /hpf (NONE) Urine Mucus FEW /lpf (OCC) Monocytes (%) (Auto) 11.1 % (0.0-8.0) Test 11/23/16 04:58 Red Blood Count 2.89 MIL/MM3 (4.50-5.90) Hemoglobin 8.3 GM/DL (13.0-17.0) Hematocrit 24.3 % (39.0-51.0) Eosinophils (%) (Auto) 4.2 % (0.0-4.0) Blood Urea Nitrogen 122 MG/DL (7-18) Creatinine 11.65 MG/DL (0.60-1.30) Albumin 2.9 GM/DL (3.4-5.0) Calcium Level 6.6 MG/DL (8.5-10.1) Phosphorus Level 6.3 MG/DL (2.5-4.9) Potassium Level 3.4 MEQ/L (3.5-5.1) Estimat Glomerular Filtration Rate 6 ML/MIN (>89) Imaging Last Impressions Chest X-Ray 11/21/16 1232 Signed Impressions: Service Date/Time: Monday, November 21, 2016 12:51 - CONCLUSION: Cardiomegaly. No acute cardiopulmonary disease. Vijay Styles MD PE at Discharge GENERAL: This is a well-nourished, well-developed patient, in no apparent distress. CARDIOVASCULAR: Regular rate and rhythm. FARIDA fistula with bruit and thrill RESPIRATORY: Clear to auscultation. GASTROINTESTINAL: Abdomen soft, non-tender, nondistended. MUSCULOSKELETAL: BLE 2 + edema. No joint tenderness, effusion, or edema noted. No calf tenderness. Negative Homans sign bilaterally. NEUROLOGICAL: Awake and alert. No focal deficits. Motor and sensory grossly within normal limits. Five out of 5 muscle strength in all muscle groups. Normal speech. Hospital Course GI bleed Symptomatic anemia - hgb 6.3, hematocrit 19.2 - serial H&H - 2 units PRBC - Protonix drip initiated by ER - GI consult - S/P EGD and Colonoscopy: impression: 1. There was LA Class A esophagitis noted 2. Single ulcer ranging between 5-9mm in size was found in the gastric antrum; Argon plasma coagulation was applied to the site; with complete hemostasis achieved 3. There was gastritis in the gastric antrum 4. Normal duodenal mucosa in the bulb and second portion of the duodenum 5. Retroflexed views revealed no abnormalities GI recommendations: 1. Anti-reflux regimen 2. Continue PPI 3. Avoid NSAIDS Return 1 month EGD Started Protonix 40 mg PO BID added simethicone PRN Chloraseptic spray PRN maalox ESRD Patient follows with Dr. Bar outpatient, HD M,W, F - consulted nephrology - plan for HD today HTN - continue home medications including Minoxidil, nifedipine, hydralazine, Losartan and clonidine - monitor trend BPH - continue home medication COPD- not in acute exacerbation - continue home medications Depression - Continue home medications DVT prophylaxis with SCDs avoid chemical DVT prophylaxis due to GI bleed Pt Condition on Discharge: Stable Discharge Disposition: Discharge Home Discharge Instructions DIET: Follow Instructions for: Renal Failure Diet Activities you can perform: Regular-No Restrictions Follow up Referrals: Gastroenterology - [address] Zavala PCP Follow-up - [address] Bolanos New Medications: Pantoprazole (Pantoprazole) 40 Mg Tab 40 MG PO Q12HR for decrease stomach acid, #60 TAB 0 Refills Simethicone (Gas Relief Maximum Streng) 125 Mg Chw 125 MG PO Q8HR for gas retention, #30 EA 0 Refills Continued Medications: Acyclovir Topical (Acyclovir Topical) 5% Oint 1 APPLIC TOPICAL Q3HR for Mgmt Viral Infection, #5 GM 0 Refills Bumetanide (Bumetanide) 2 Mg Tab 2 MG PO DAILY, TAB 0 Refills Bupropion HCl ER 24 HR (Bupropion HCl ER 24 HR) 150 Mg Tab 150 MG PO DAILY for Control Depression, TAB 0 Refills Clonidine (Clonidine) 0.2 Mg Tab 0.2 MG PO BID for Blood Pressure Management, TAB 0 Refills Cyclobenzaprine (Flexeril) 10 Mg Tab 10 MG PO TID PRN for MUSCLE SPASMS, #90 TAB 0 Refills Fluticasone Nasal [place] (Fluticasone Nasal [place]) 50 Mcg/Act Naspr 50 MCG EACH NARE BID for Allergy Management, #1 BOTTLE 0 Refills 50 mcg/spray Hydralazine (Hydralazine) 100 Mg Tab 100 MG PO TID for Blood Pressure Management, TAB 0 Refills Take with meals Labetalol (Labetalol) 300 Mg Tab 300 MG PO TID for Blood Pressure Management, TAB 0 Refills Losartan (Losartan) 50 Mg Tab 50 MG PO BID for Blood Pressure Management, TAB 0 Refills Minoxidil (Minoxidil) 2.5 Mg Tab 2.5 MG PO BID for Blood Pressure Management, #30 TAB 0 Refills Nifedipine ER 24 HR (Nifedipine ER 24 HR) 60 Mg Tab 60 MG PO BID, #30 TAB 0 Refills Oxycodone-Acetaminophen (Percocet) 5-325 mg Tab 1 TAB PO Q8HR PRN for PAIN 1-10, TAB 0 Refills Polyethylene Glycol 3350 Powder (Miralax Powder) 17 Gm Powd 17 GM PO DAILY for Constipation, CAN 0 Refills Mix and dissolve one measuring cap-ful (17 grams) in water or juice. Pramipexole (Mirapex) 0.25 Mg Tab 0.25 MG PO HS for Parkinson Disease Mgmt, TAB 0 Refills Tadalafil (Cialis) 20 Mg Tab 20 MG PO DAILY PRN for Erectile Dysfunction, TAB 0 Refills Do not exceed 1 dose/day. Discontinued Medications: Aspirin DR (Aspirin DR) 81 Mg Tabdr 81 MG PO DAILY, TAB 0 Refills Ranitidine (Ranitidine) 150 Mg Tab 150 MG PO BID for Heartburn Management, TAB 0 Refills Leonarda Rodriguez Nov 23, 2016 15:53
--- NOTE | 2016-11-23 15:54 | HHI.DCPOC ---
Discharge Care Plan Diagnosis: (1) GI bleed (2) ESRD (end stage renal disease) on dialysis Goals to Promote Your Health * To prevent worsening of your condition and complications * To maintain your health at the optimal level Directions to Meet Your Goals Take your medications as prescribed Follow your dietary instruction Follow activity as directed Keep your appointments as scheduled Take your immunizations and boosters as scheduled If your symptoms worsen call your PCP, if no PCP go to Urgent Care Center or Emergency Room Smoking is Dangerous to Your Health. Avoid second hand smoke Call the 24-hour hour crisis hotline for domestic abuse at Leonarda Rodriguez Nov 23, 2016 15:53
[2016-11-23] MEDS: hydrALAZINE HCL 100 MG TAB PO SCH (16:31)
[2016-11-23] MEDS: LABETALOL HCL 300 MG TAB PO SCH (16:31)
[2016-11-23] MEDS: BUMETANIDE 1 MG TAB PO SCH (16:33)
== END 2016-11-23 17:41 | disposition home or self-care (01) | DRG 377 ==
LOC: NEPC 09:25 → NEDA 12:38 → N04B 13:57
PROVIDERS: ADMIT Hospitalist; ATTEND Hospitalist
PROC: 30233N1 Transfusion of Nonautologous Red Blood Cells into Peripheral Vein, Percutaneous Approach (ICD-10-PCS; 2016-11-21)
PROC: 0W3P8ZZ Control Bleeding in Gastrointestinal Tract, Via Natural or Artificial Opening Endoscopic (ICD-10-PCS; 2016-11-22)
PROC: 0DJD8ZZ Inspection of Lower Intestinal Tract, Via Natural or Artificial Opening Endoscopic (ICD-10-PCS; principal; 2016-11-22 11:10)
PROC: 3E0G8GC Introduction of Other Therapeutic Substance into Upper GI, Via Natural or Artificial Opening Endoscopic (ICD-10-PCS; 2016-11-22 11:10)
PROC: 5A1D70Z Performance of Urinary Filtration, Intermittent, Less than 6 Hours Per Day (ICD-10-PCS; 2016-11-23)
DX: K92.2 Gastrointestinal hemorrhage, unspecified (principal); N18.6 End stage renal disease; I12.0 Hypertensive chronic kidney disease with stage 5 chronic kidney disease or end stage renal disease; D62 Acute posthemorrhagic anemia; D63.1 Anemia in chronic kidney disease; Z99.2 Dependence on renal dialysis; K25.9 Gastric ulcer, unspecified as acute or chronic, without hemorrhage or perforation; K21.0 Gastro-esophageal reflux disease with esophagitis; K29.50 Unspecified chronic gastritis without bleeding; K64.4 Residual hemorrhoidal skin tags; K64.8 Other hemorrhoids; R30.0 Dysuria; N40.0 Benign prostatic hyperplasia without lower urinary tract symptoms; J44.9 Chronic obstructive pulmonary disease, unspecified; F32.9 Major depressive disorder, single episode, unspecified
CPT/HCPCS: 36430; 71010; 80053; 80069; 81001; 85025; 85610; 85730; 86644; 86850; 86900; 86901; 86920; 90935; 93005; 96374; C9113; J0171; J1200; J1940; J2370; J2405; J7050; P9016

== ENCOUNTER → 2017-01-05 | Outpatient (CLI) | payer OTHER ==
[~2017-01-05] VITALS: Ht 188 cm; Wt 118.8 kg
[~2017-01-05] MED LIST changes: -ASPI81TA5 PO; +BUME2TAB PO; +BUPR150T3 PO; -BUPR1TAB29 PO; +CHLORHEXIDINE GLUCONATE 2 % 1 PACK (2 CLOTHS) TOPICAL PRN; +CLON0.2T PO; +CYCL10TA PO; -CYCL1TAB29 PO; +DEXTROSE 5%-LACTATED RING INJ 1,000 ML IV SCH; +INSULIN HUMAN REGULAR 1,000 UNITS/10 ML VIAL SQ PRN; +LACTATED RINGER'S 1000 ML IV PRN; +LIDOCAINE HCL 1% PF 5 ML SYRINGE OTHER ONE; +LOSA50TA PO; +METOPROLOL TARTRATE 25 MG TAB PO PRN; +MIRA0.25 PO; +MIRA3350 PO; +PANT40TA3 PO; +PERC5TAB12 PO; +POVIDONE IODINE 5% (ANTISEPSIS KIT) 4 APPLICATIONS EACH NARE PRN; +PROPOFOL 200 MG/20 ML AMP IV ONE; +SIME1CHW11 PO; +SODIUM CHLORID 0.9% 500 ML IV PRN; -TERA2CAP3 PO
--- NOTE | 2017-01-05 13:02 | GIPROC ---
[facility] [address] [facility]. [facility], [address] EGD PROCEDURE REPORT EXAM DATE: 01/05/2017 PATIENT NAME: Ajay Granado MR #: [id number] BIRTHDATE: 1960 ATTENDING: Nadya Cabello MD ORDER #: [id number] TREATING ENGINEER: Marc Gamble and Lillian Rojo STATUS: outpatient INDICATIONS: The patient is a 56 yr old male here for an EGD due to fu PUD PROCEDURE PERFORMED: EGD w/ biopsy MEDICATIONS: None and Per Anesthesia. TOPICAL ANESTHETIC: none CONSENT: The patient understands the risks and benefits of the procedure and understands that these risks include, but are not limited to: sedation, allergic reaction, infection, perforation and/or bleeding. Alternative means of evaluation and treatment include, among others: physical exam, x-rays, and/or surgical intervention. The patient elects to proceed with this endoscopic procedure. medical equipment was checked for proper function. Hand hygiene and appropriate measures for infection prevention was taken. After the risks, benefits and alternatives of the procedure were thoroughly explained, Informed consent was verified, confirmed and timeout was successfully executed by the treatment team. The patient was anesthetized with topical anesthesia and the Pentax [id number] endoscope was introduced through the mouth and advanced to the second portion of the duodenum. Retroflexed views revealed a hiatal hernia The gastroscope was then slowly withdrawn and removed. Duodenitis second portion nodular mucosa antrum-biopsy esophagitis distal esophagus-biopsy. ADVERSE EVENTS: There were no complications. IMPRESSIONS: 1. Duodenitis second portion nodular mucosa antrum-biopsy esophagitis distal esophagus-biopsy 2. Retroflexed views revealed a hiatal hernia RECOMMENDATIONS: 1. Await biopsy results. Biopsy results will not be ready for 7-10 days. If you don't hear from us in two weeks, call our office for biopsy results. 2. Anti-reflux regimen 3. Continue PPI 4. Avoid NSAIDS 5. Colonoscopy as ordered please -due this month PATIENT CONDITION: stable DISPOSITION: Home REPEAT EXAM: Return 6 months EGD Nadya Cabello MD eSigned: Nadya Cabello MD 01/05/2017 1:01 PM cc: Yara Bolanos M.D. PATIENT NAME: Ajay Granado MR#: [id number]
[2017-01-05 14:09] VITALS: BP 167/90; PULSE 65; RESP 18; TEMP 97.8; O2SAT 98
== END ==
LOC: HEND 08:40
PROVIDERS: ATTEND Internal Medicine Gastroenterology
DX: K27.9 Peptic ulcer, site unspecified, unspecified as acute or chronic, without hemorrhage or perforation (principal); K44.9 Diaphragmatic hernia without obstruction or gangrene; K29.80 Duodenitis without bleeding; K31.89 Other diseases of stomach and duodenum; K20.9 Esophagitis, unspecified
CPT/HCPCS: 84132; 88305; 88312

== ENCOUNTER → 2017-02-18 | Day surgery (SDC) | payer OTHER ==
[~2017-02-18] VITALS: Ht 188 cm; Wt 111.7 kg
[~2017-02-18] MED LIST changes: -BUPR150T3 PO; -CLON0.2T PO; +RANI1TAB5 PO
[2017-02-18 09:36] LABS: BICARBONATE 26.7 MEQ/L (21.0-32.0); CALCIUM 7.8 MG/DL (8.5-10.1); CREATININE 6.92 MG/DL (0.60-1.30)
--- NOTE | 2017-02-18 12:24 | GIPROC ---
[facility] [address] [facility]. [facility], [id number] COLONOSCOPY PROCEDURE REPORT EXAM DATE: 02/18/2017 PATIENT NAME: Ajay Granado MR #: [id number] BIRTHDATE: 1960 ENDOSCOPIST: Nadya Cabello MD ORDER #: [id number] POOL COORDINATOR: Polly Hale and Marc Gamble STATUS: outpatient INDICATIONS: The patient is a 56 yr old male here for a colonoscopy due to history of polyps, poor prep on previous colonoscopy PROCEDURE PERFORMED: Colonoscopy, diagnostic MEDICATIONS: None and Per Anesthesia. PREP QUALITY: good PREP TYPE:Other: ESTIMATED BLOOD LOSS: None CONSENT: The patient understands the risks and benefits of the procedure and understands that these risks include, but are not limited to: sedation, allergic reaction, infection, perforation and/or bleeding. Alternative means of evaluation and treatment include, among others: physical exam, x-rays, and/or surgical intervention. The patient elects to proceed with this endoscopic procedure. medical equipment was checked for proper function. Hand hygiene and appropriate measures for infection prevention was taken. After the risks, benefits and alternatives of the procedure were thoroughly explained, Informed consent was verified, confirmed and timeout was successfully executed by the treatment team. A digital exam revealed external hemorrhoids The Pentax [id number] endoscope was introduced through the anus and advanced to the cecum, which was identified by both the appendix and ileocecal valve. The instrument was then slowly withdrawn as the colon was fully examined. COLON FINDINGS: The colonic mucosa appeared normal. Few samll diverticulae in sigmoid , descending. Retroflexed views revealed internal hemorrhoids and Retroflexed views revealed small internal hemorrhoids The scope was then completely withdrawn from the patient and the procedure terminated. PROCEDURE WITHDRAWAL TIME:6minutes ADVERSE EVENTS: There were no complications. IMPRESSIONS: 1. The colonic mucosa appeared normal 2. Few samll diverticulae in sigmoid , descending 3. Retroflexed views revealed internal hemorrhoids 4. Retroflexed views revealed small internal hemorrhoids 5. Revealed external hemorrhoids RECOMMENDATIONS: 1. Benefiber 2 tsp daily 2. Probiotics from any C or health food store 3. Yearly rectal exams RECALL: Return 5 years Colonoscopy Nadya Bratu MD eSigned: Nadya Cabello MD 02/18/2017 12:24 PM cc:
[2017-02-18 12:55] VITALS: BP 163/91; PULSE 65; RESP 20; TEMP 98.5; O2SAT 98
== END | disposition home or self-care (01) ==
LOC: HSDC 08:21
PROVIDERS: ATTEND Internal Medicine Gastroenterology
DX: Z86.010 Personal history of colon polyps (principal); K57.30 Diverticulosis of large intestine without perforation or abscess without bleeding; K64.8 Other hemorrhoids; K64.4 Residual hemorrhoidal skin tags; I12.0 Hypertensive chronic kidney disease with stage 5 chronic kidney disease or end stage renal disease; N18.6 End stage renal disease; D63.1 Anemia in chronic kidney disease; K59.00 Constipation, unspecified; J44.0 Chronic obstructive pulmonary disease with (acute) lower respiratory infection; J20.9 Acute bronchitis, unspecified; N40.0 Benign prostatic hyperplasia without lower urinary tract symptoms; K27.9 Peptic ulcer, site unspecified, unspecified as acute or chronic, without hemorrhage or perforation; M19.031 Primary osteoarthritis, right wrist; Z99.2 Dependence on renal dialysis
CPT/HCPCS: 00812; 45378; 80048; J7040

== ENCOUNTER 2017-10-19 10:37 | Observation (INO) ==
[2017-10-19] MEDS ORDERED: Pantoprazole Inj 80 MG in Sodium Chlor 0.9% Inj 35 ML IV.SIG ONE (12:23)
[2017-10-19] MEDS ORDERED: Sod Chloride 0.9% Inj 1,000 ML IV.SIG ONE (12:23)
[2017-10-19 12:44] LABS: Baso % (Auto) 0.6 % (0.0-2.0); Eos # (Auto) 0.2 th/mm3 (0.0-0.4); Eos % (Auto) 5.7 % (0.0-4.0); Hemoglobin 8.7 gm/dL (13.0-17.0); Lymph # (Auto) 0.7 th/mm3 (1.0-4.8); Lymph % (Auto) 16.9 % (9.0-44.0); Mean Corpuscular HGB Conc 32.3 % (32.0-36.0); Mean Corpuscular Hemoglobin 28.4 pg (27.0-34.0); Mean Corpuscular Volume 87.8 fL (80.0-100.0); Mean Platelet Volume 8.1 fL (7.0-11.0); Mono # (Auto) 0.5 th/mm3 (0.0-0.9); Mono % (Auto) 11.9 % (0.0-8.0); Neut # (Auto) 2.5 th/mm3 (1.8-7.7); Neut % (Auto) 64.9 % (16.0-70.0); Platelet Count 180 th/mm3 (150-450); Red Blood Count 3.07 mil/mm3 (4.50-5.90); Red Cell Distribution Width 15.3 % (11.6-17.2); White Blood Count 3.9 th/mm3 (4.0-11.0)
--- NOTE | 2017-10-19 12:44 | ED ---
HPI General Chief Complaint: Abdominal Pain Stated Complaint: Medical Complaint Time Seen by Provider: 10/19/17 12:16 Source: patient Mode of arrival: ambulatory Limitations: no limitations History of Present Illness HPI narrative: Patient is a 57-year-old male with history of end-stage renal disease on HD, hypertension, anemia, COPD, chronic back pain, BPH and OA, presents the emergency room for evaluation of GI bleed. Patient reports that for the past week, he has been having upper abdominal pain with associated nausea. Patient reports that he has been able to eat, he did have a full meal yesterday, reports that he did notice that he had dark tarry stool yesterday. Patient reports that this morning, he started vomiting up blood. Patient called his pipe buffer, Dr. Cabello and was told to come to the emergency room for evaluation. Patient endorses that he does have upper abdominal pain. Patient with no chest pain or shortness of breath, reports that he does have end -stage renal disease currently on hemodialysis every Mondays, Wednesdays and Fridays. Patient reports that he was seen in the hospital in November 2016 for similar symptoms, he did have a colonoscopy as well as an EGD while he was here. Patient is currently not on any anticoagulants. EGD was performed on 01/05/[address] Cabello- it showed duodenitis as well as a hiatal hernia. Colonoscopy was performed by Dr. Cabello on February 18, 2017 -the colonic mucosa appeared normal, there are a few small diverticuli in the sigmoid and descending colon. There were internal hemorrhoids as well as external hemorrhoids. Related Data Home Medications Medication Instructions Recorded Confirmed bumetanide 2 mg PO BID 10/19/17 10/19/17 clonidine HCl 0.1 mg PO BID 10/19/17 10/19/17 hydralazine 100 mg PO TID 10/19/17 10/19/17 hydroxyzine HCl PO TID 10/19/17 labetalol 300 mg PO TID 10/19/17 10/19/17 losartan 50 mg PO BID 10/19/17 10/19/17 minoxidil 2.5 mg PO BID 10/19/17 10/19/17 nifedipine 60 mg PO BID 10/19/17 10/19/17 ranitidine HCl 300 mg PO BID 10/19/17 10/19/17 Allergies Allergy/AdvReac Type Severity Reaction Status Date / Time cefazolin Allergy Severe Hives Verified 10/19/17 12:56 morphine Allergy Severe Nausea/Vomi Verified 10/19/17 12:56 ting Review of Systems ROS: all other systems reviewed are negative PMFSH History History Provided By: Patient Medical History Medical History ESRD (end stage renal disease) on dialysis (Acute) Fistula (Acute) H/O: HTN (hypertension) (Acute) Multiple renal calculi (Acute) Osteoarthritis (Acute) Surgical History Surgical History History of appendectomy (Acute) Social History Social History Substance History: No History of Abuse Second Hand Smoke Exposure: No Smoking Status: Unknown if ever smoked Tobacco Type: Cigarettes How Often Do You Have a Drink Containing Alcohol: Never Recent Travel in [facility] within the Last 8 Weeks: No Recent Out of Country Travel within the Last 8 Weeks: No Exam Narrative Exam Narrative: GENERAL: Mild distress SKIN: Focused skin assessment warm/dry. HEAD: Atraumatic. Normocephalic. EYES: Pupils equal and round. No scleral icterus. No injection or drainage. ENT: No nasal bleeding or discharge. Mucous membranes pink and moist. NECK: Trachea midline. No JVD. CARDIOVASCULAR: Regular rate and rhythm. No murmur appreciated. RESPIRATORY: No accessory muscle use. Clear to auscultation. Breath sounds equal bilaterally. GASTROINTESTINAL: Abdomen soft, mild tenderness to upper abdomen with no rebound or guarding, nondistended. Hepatic and splenic margins not palpable. Rectal exam was performed with RN at bedside, patient with melanotic stool, heme positive MUSCULOSKELETAL: No obvious deformities. No clubbing. No cyanosis. No edema. NEUROLOGICAL: Awake and alert. No obvious cranial nerve deficits. Motor grossly within normal limits. Normal speech. PSYCHIATRIC: Appropriate mood and affect; insight and judgment normal. Course Initial Documented Vital Signs Temperature 99.1 F 10/19/17 10:56 Pulse Rate 74 10/19/17 10:56 Respiratory Rate 14 10/19/17 10:56 Blood Pressure 207/92 H 10/19/17 10:56 Pulse Oximetry 96 10/19/17 10:56 Last Documented Vital Signs Temperature 99.1 F 10/19/17 10:56 Pulse Rate 74 10/19/17 10:56 Respiratory Rate 14 10/19/17 10:56 Blood Pressure 207/92 H 10/19/17 10:56 Pulse Oximetry 96 10/19/17 10:56 Medical Decision Making MDM Narrative Medical decision making narrative: During the course of the patients emergency department visit, the patients history, examination, and differential diagnosis were reviewed with the patient. The patient was placed on a supervisory training specialist with oximetry and frequent blood pressure monitoring. The patient had an IV access obtained and blood work sent for analysis. The patient was initially provided protonix, protonix gtt HBG 8.7 - patient with gross melana -patient will be admitted to the hospital for further workup for his gi bleed H&H stable, VSS - he was started on protonix gtt and did receive protonix bolus. case reviewed with Dr. Avila who accepts pt to service Medical Screen Exam Complete: Yes Emergency Medical Condition: Yes Differential Diagnosis Differential Diagnosis: GI bleed, gastric ulcer, duodenitis, anemia Medical Records Medical records reviewed: Yes I reviewed the patient's medical records. Lab Data Result diagrams: 10/19/17 12:30 10/19/17 12:30 Lab Results 10/19/17 10/19/17 10/19/17 Range/Units 12:30 12:30 12:30 WBC 3.9 L (4.0-11.0) th/mm3 RBC 3.07 L (4.50-5.90) mil/mm3 Hgb 8.7 L (13.0-17.0) gm/dL Hct 27.0 L (39.0-51.0) % MCV 87.8 (80.0-100.0) fL MCH 28.4 (27.0-34.0) pg MCHC 32.3 (32.0-36.0) % RDW 15.3 (11.6-17.2) % Plt Count 180 (150-450) th/mm3 MPV 8.1 (7.0-11.0) fL Neut % (Auto) 64.9 (16.0-70.0) % Lymph % (Auto) 16.9 (9.0-44.0) % Bee % (Auto) 11.9 H (0.0-8.0) % Eos % (Auto) 5.7 H (0.0-4.0) % Baso % (Auto) 0.6 (0.0-2.0) % Neut # (Auto) 2.5 (1.8-7.7) th/mm3 Lymph # (Auto) 0.7 L (1.0-4.8) th/mm3 Bee # (Auto) 0.5 (0.0-0.9) th/mm3 Eos # (Auto) 0.2 (0.0-0.4) th/mm3 Baso # (Auto) 0.0 (0.0-0.2) th/mm3 WBC Differential . Differential Comment Auto diff final PT 11.4 (9.8-11.6) sec INR 1.1 Ratio APTT 27.7 (24.3-30.1) sec Sodium (136-145) meq/L Potassium (3.5-5.1) meq/L Chloride (98-107) meq/L Carbon Dioxide (21.0-32.0) meq/L Anion Gap (5-15) meq/L BUN (7-18) mg/dL Creatinine (0.60-1.30) mg/dL Estimated GFR (>89) mL/min Random Glucose (74-106) mg/dL Calcium (8.5-10.1) mg/dL Total Bilirubin (0.2-1.0) mg/dL AST (15-37) U/L ALT (12-78) U/L Alkaline Phosphatase (45-117) U/L Total Protein (6.4-8.2) g/dL Albumin (3.4-5.0) g/dL Lipase (73-393) U/L Blood Type B Positive Antibody Screen Negative 10/19/17 Range/Units 12:30 WBC (4.0-11.0) th/mm3 RBC (4.50-5.90) mil/mm3 Hgb (13.0-17.0) gm/dL Hct (39.0-51.0) % MCV (80.0-100.0) fL MCH (27.0-34.0) pg MCHC (32.0-36.0) % RDW (11.6-17.2) % Plt Count (150-450) th/mm3 MPV (7.0-11.0) fL Neut % (Auto) (16.0-70.0) % Lymph % (Auto) (9.0-44.0) % Bee % (Auto) (0.0-8.0) % Eos % (Auto) (0.0-4.0) % Baso % (Auto) (0.0-2.0) % Neut # (Auto) (1.8-7.7) th/mm3 Lymph # (Auto) (1.0-4.8) th/mm3 Bee # (Auto) (0.0-0.9) th/mm3 Eos # (Auto) (0.0-0.4) th/mm3 Baso # (Auto) (0.0-0.2) th/mm3 WBC Differential Differential Comment PT (9.8-11.6) sec INR Ratio APTT (24.3-30.1) sec Sodium 143 (136-145) meq/L Potassium 4.8 (3.5-5.1) meq/L Chloride 108 H (98-107) meq/L Carbon Dioxide 23.3 (21.0-32.0) meq/L Anion Gap 12 (5-15) meq/L BUN 82 H (7-18) mg/dL Creatinine 8.15 H (0.60-1.30) mg/dL Estimated GFR 8 L (>89) mL/min Random Glucose 81 (74-106) mg/dL Calcium 7.7 L (8.5-10.1) mg/dL Total Bilirubin 0.5 (0.2-1.0) mg/dL AST 11 L (15-37) U/L ALT 15 (12-78) U/L Alkaline Phosphatase 57 (45-117) U/L Total Protein 6.2 L (6.4-8.2) g/dL Albumin 3.2 L (3.4-5.0) g/dL Lipase 190 (73-393) U/L Blood Type Antibody Screen Imaging Data Radiologist's impression: Abdomen/Pelvis CT 10/19/17 12:23 CONCLUSION: 1. No evidence of acute process in the abdomen or pelvis. 2. Cardiomegaly with small bilateral effusions. 3. Stable calcification lower pole of the left kidney. 4. Stable small nonspecific lymph nodes within the retroperitoneum. Chest X-Ray 10/19/17 12:23 CONCLUSION: Cardiomegaly with mild vascular congestion. No evidence of pulmonary edema or consolidating infiltrate. ECG Data EKG Prior to Arrival: No Attestation: I personally reviewed and interpreted this ECG as follows: Interpretation: EKG at 1239: NSR at 77bpm, qt/qtc: 393/425, no acute st or t wave changes Discharge Plan Discharge Disposition Patient Disposition: 30 Still Patient Discharge Condition Condition: Fair Discharge Details Diagnosis: GI (gastrointestinal bleed) Physicians Team ED Provider: Piedad Negrete Primary Care Provider: Yara Bolanos Rxs /Orders / Referrals /Forms Prescriptions: No Action nifedipine 60 mg Tablet Extended Release 24hr 60 mg PO BID RF: 0 losartan 50 mg Tablet 50 mg PO BID RF: 0 clonidine HCl 0.1 mg Tablet 0.1 mg PO BID RF: 0 bumetanide 2 mg Tablet 2 mg PO BID RF: 0 ranitidine HCl 300 mg Tablet 300 mg PO BID RF: 0 minoxidil 2.5 mg Tablet 2.5 mg PO BID RF: 0 hydralazine 100 mg Tablet 100 mg PO TID RF: 0 hydroxyzine HCl 25 mg Tablet PO TID RF: 0 labetalol 300 mg Tablet 300 mg PO TID RF: 0 Status ED Status: With Doctor
[2017-10-19] MEDS: Pantoprazole Inj 80 MG in Sodium Chlor 0.9% Inj 100 ML IV.CONT SCH (12:50)
[2017-10-19 13:04] LABS: Activated Partial Thrombo Time 27.7 sec (24.3-30.1); INR 1.1 Ratio; Prothrombin Time 11.4 sec (9.8-11.6)
[2017-10-19 13:06] LABS: Albumin 3.2 g/dL (3.4-5.0); Anion Gap 12 meq/L (5-15); Calcium 7.7 mg/dL (8.5-10.1); Carbon Dioxide 23.3 meq/L (21.0-32.0); Chloride 108 meq/L (98-107); Glomerular Filtration Rate 8 mL/min (>89); Glucose,Random 81 mg/dL (74-106); Lipase 190 U/L (73-393); Potassium 4.8 meq/L (3.5-5.1); Sodium 143 meq/L (136-145)
[2017-10-19 13:19] LABS: Alanine Aminotransferase 15 U/L (12-78); Alkaline Phosphatase 57 U/L (45-117); Aspartate Aminotransferase 11 U/L (15-37); Blood Urea Nitrogen 82 mg/dL (7-18); Total Protein 6.2 g/dL (6.4-8.2)
--- NOTE | 2017-10-19 13:38 | CT ---
EXAM DATE: 10/19/2017 1:19 PM EDT AGE/SEX: 57 years / Male INDICATIONS: Patient states he is vomiting blood. CLINICAL DATA: This is the patient's initial encounter. Patient reports that signs and symptoms have been present for 1 day and indicates a pain score of 5/10. MEDICAL/SURGICAL HISTORY: None. None. RADIATION DOSE: 14.03 CTDI (mGy) COMPARISON: [facility] [place] ABDOMEN & PELVIS W/O CONTRAST, 07/29/2017. . TECHNIQUE: Multiple contiguous axial images were obtained through the abdomen. Images were obtained using multiple row detector helical technique. Using automated exposure control and adjustment of the mA and/or kV according to patient size, radiation dose was kept as low as reasonably achievable to o btain optimal diagnostic quality images. DICOM format image data is available electronically for rev iew and comparison. FINDINGS: Lower Lungs: The heart is markedly enlarged. Small bilateral effusions are noted. Liver: The liver has a homogeneous density without space-occupying lesion. There is no dilation of th e biliary tree. Spleen: Homogeneous density without enlargement. Pancreas: Unremarkable without mass or calcification. Kidneys: Normal in size and shape. No evidence of mass or hydronephrosis. Small hyperdensity is seen in the lower pole the left kidney. Adrenal Glands: Unremarkable. Aorta: The aorta and proximal iliac vessels are grossly unremarkable without aneurysmal dilation. Bowel/Mesentery: The bowel loops are grossly unremarkable. The cecum and sigmoid colon have a normal configuration. Abdominal Wall: Intact. Retroperitoneum: Small retroperitoneal lymph nodes ranging in size up to 1.8 cm are noted and have n ot significantly changed. Bladder: Contours are smooth. Reproductive Organs: No abnormal masses or calcifications seen. Inguinal: The inguinal region is unremarkable without evidence of adenopathy. Bony Structures: Unremarkable. CONCLUSION: 1. No evidence of acute process in the abdomen or pelvis. 2. Cardiomegaly with small bilateral effusions. 3. Stable calcification lower pole of the left kidney. 4. Stable small nonspecific lymph nodes within the retroperitoneum. Electronically signed by: Lencho Flowers MD 10/19/2017 1:37 PM EDT
--- NOTE | 2017-10-19 14:16 | XR ---
EXAM DATE: 10/19/2017 1:58 PM EDT AGE/SEX: 57 years / Male INDICATIONS: GI bleed, weakness, short of breath, nausea. CLINICAL DATA: This is the patient's initial encounter. Patient reports that signs and symptoms have been present for 1 day and indicates a pain score of 3/10. MEDICAL/SURGICAL HISTORY: . GI bleed None. COMPARISON: [facility] – [place], CHEST SINGLE AP, 11/21/2016. . FINDINGS: The heart is moderately to markedly enlarged. There is mild increase interstitial vascular prominence without evidence of acute airspace disease or significant pleural effusion. Osseous structures are intact. CONCLUSION: Cardiomegaly with mild vascular congestion. No evidence of pulmonary edema or consolidating infiltrate. Electronically signed by: Lencho Flowers MD 10/19/2017 2:14 PM EDT
--- NOTE | 2017-10-19 15:26 | P.HPIM ---
History of Present Illness Primary Care Physician: Yara Bolanos MD Chief Complaint: Melena History of Present Illness: Mr. Granado is a 57 y/o male with ESRD on HD on M/W/F, HTN, anemia of chronic disease, COPD, chronic back pain BPH and OA. He presented to the ED at [facility] on [place] for evaluation of GI bleed. Patient reported that for the past week, he has been having upper abdominal pain and nausea. He has been able to eat and drink without much difficulty. Then yesterday he noticed that he had dark tarry stool. Then this morning he had an episode of vomiting and noted blood. Patient called his lubrication technician, Dr. Cabello and was told to come to the emergency room for evaluation. Patient reports that he was seen in the hospital in November 2016 for similar symptoms, he did have a EGD/colonoscopy on 11/22/16 while he was here which noted LA Class A esophagitis, single ulcer ranging between 5-9mm in size was found in the gastric antrum s/p APC applied to the site with complete hemostasis achieved, gastritis in the gastric antrum, normal duodenal mucosa in the bulb and second portion of the duodenum, and the colonoscopy noted a poor prep, inadequate exam with internal/external hemorrhoids. He then had followup with GI and subsequently underwent repeat EGD on 01/05/[address] Cabello which note duodenitis as well as a hiatal hernia and a colonoscopy performed by Dr. Cabello on February 18, 2017 which noted the colonic mucosa appeared normal, there are a few small diverticula in the sigmoid and descending colon, and internal/external hemorrhoids. Patient with no chest pain or shortness of breath. Patient is currently not on any anticoagulants. Pts labs at admission noted Hgb 8.7/Hct 27.0. He had reported grossly melanotic stool in the ED. Past Medical History ESRD, HD Mondays, Wednesdays, Fridays Anemia GIB HTN Hx rib fracture Cerebral contusions Right wrist fracture Anemia of chronic disease COPD Chronic back pain Enlarged prostate Depression Osteoarthritis 2D echo (09/02/17): - Estimated ejection fraction in the range of 60-65%. - Moderate concentric left ventricular hypertrophy. - LA is [id number]-[id number] dilated. - Aortic valve sclerosis is present. mean gradient = 13 mm hg consistent with mild aortic valve stenosis - Trace aortic valve regurgitation. - Trace tricuspid valve regurgitation. - The estimated pulmonary arterial pressure is 54.4 mmHg. - There is trace pericardial effusion present. Past Surgical History ORIF right wrist Appendectomy AV fistula EGD on 01/05/[address] Cabello --> duodenitis as well as a hiatal hernia. Colonoscopy on February 18, 2017 with [facility] --> the colonic mucosa appeared normal, there are a few small diverticula in the sigmoid and descending colon. There were internal hemorrhoids as well as external hemorrhoids. EGD/colonoscopy on 11/22/16 --> LA Class A esophagitis, single ulcer ranging between 5-9mm in size was found in the gastric antrum s/p APC applied to the site with complete hemostasis achieved, gastritis in the gastric antrum, normal duodenal mucosa in the bulb and second portion of the duodenum, and the colonoscopy noted a poor prep, inadequate exam with internal/external hemorrhoids. EGD/Colonoscopy (01/22/16) for anemia ---> prominent ileocecal valve, four polyps- two removed by snare and 2 fulgurated in the sigmoid, small hemorrhoid, mild gastritis. Family History Mother from colon cancer at age 50. Social History No tobacco No ETOH No illicit drug use - Diagnosis (1) GI (gastrointestinal bleed) (2) ESRD (end stage renal disease) on dialysis (3) HTN (hypertension) Review of Systems Gastrointestinal: Reports abdominal pain, Reports black, tarry stools, Reports nausea PMFSH - History History Provided By: Patient - Medical History Medical History: Medical History (Last Updated 10/19/17 @ 12:49 by Piedad Negrete) ESRD (end stage renal disease) on dialysis Fistula H/O: HTN (hypertension) Multiple renal calculi Osteoarthritis - Surgical History Surgical History: Surgical History (Last Updated 10/19/17 @ 12:49 by Piedad Negrete) History of appendectomy - Tobacco History Second Hand Smoke Exposure: No Tobacco Use In Past 30 Days: No Smoking Status: Unknown if ever smoked Tobacco Type: Cigarettes - Alcohol History How Often Do You Have a Drink Containing Alcohol: Never - Substance Use History Substance History: No History of Abuse - Travel History Recent Travel in the [place] Within the Last 8 Weeks: No Recent Travel Out of the Country Within the Last 8 Weeks: No - Immunization History Tetanus Immunization: Unsure Hx Influenza Vaccine This Season: Unable to Assess Medications and Allergies Allergies Allergy/AdvReac Type Severity Reaction Status Date / Time cefazolin Allergy Severe Hives Verified 10/19/17 12:56 morphine Allergy Severe Nausea/Vomi Verified 10/19/17 12:56 ting Home Medications Medication Instructions Recorded Confirmed Type bumetanide 2 mg PO BID 10/19/17 10/19/17 History clonidine HCl 0.1 mg PO BID 10/19/17 10/19/17 History hydralazine 100 mg PO TID 10/19/17 10/19/17 History hydroxyzine HCl 25 mg PO TID 10/19/17 10/19/17 History labetalol 300 mg PO TID 10/19/17 10/19/17 History losartan 50 mg PO BID 10/19/17 10/19/17 History minoxidil 2.5 mg PO BID 10/19/17 10/19/17 History nifedipine 60 mg PO BID 10/19/17 10/19/17 History Active Medications: Active Medications Pantoprazole Sodium 80 mg/ (Sodium Chloride) 100 mls @ 10 mls/hr IV.CONT CONT ARELY Last Admin: 10/19/17 12:50 Dose: 10 mls/hr Sodium Chloride (Ns Flush) 2 ml IV.FLUSH PRN PRN PRN Reason: FLUSH AFTER USING IV ACCESS Exam Vital signs: Vital Signs 10/19/17 10:56 10/19/17 14:43 Temperature 99.1 F Pulse Rate 74 79 Respiratory Rate 14 16 Blood Pressure 207/92 H Pulse Oximetry 96 98 Intake & Output 10/18/17 10/19/17 10/19/17 18:59 06:59 18:59 Intake Total 1035 / 1035 Balance 1035 / 1035 Weight 104.326 kg Intake: IV 1035 / 1035 Protonix Inj 80 MG In NS Inj 35 35 / 35 ML @ 420 mls/hr IV.SIG BOLUS ONE Rx#:[id number] NS Inj 1,000 ML @ Wide Open IV. 1000 / 1000 SIG BOLUS ONE Rx#:[id number] Narrative: GENERAL: NAD, AAOx3 SKIN: Warm and dry. HEENT: Atraumatic. Normocephalic. Pupils equal and round. No scleral icterus. No injection or drainage. No nasal bleeding or discharge. Mucous membranes pink and moist. NECK: Trachea midline. No JVD. CARDIO: Regular rate and rhythm. RESP: No accessory muscle use. Clear to auscultation. Breath sounds equal bilaterally. ABD: +BS, soft, non-tender, nondistended. Hepatic and splenic margins not palpable. EXT: AVF in LUE NEURO: Awake and alert. No obvious cranial nerve deficits. Motor grossly within normal limits. Five out of 5 muscle strength in the arms and legs. Normal speech. PSYCH: Appropriate mood and affect; insight and judgment normal. Results - Labs CBC & Chem 7: 10/20/17 07:28 10/20/17 07:28 Labs: Short CBC 10/19/17 Range/Units 12:30 WBC 3.9 L (4.0-11.0) th/mm3 Hgb 8.7 L (13.0-17.0) gm/dL Hct 27.0 L (39.0-51.0) % Plt Count 180 (150-450) th/mm3 BMP 10/19/17 12:30 Sodium 143 Potassium 4.8 Chloride 108 H Carbon Dioxide 23.3 BUN 82 H Creatinine 8.15 H Calcium 7.7 L Liver Function 10/19/17 Range/Units 12:30 Total Bilirubin 0.5 (0.2-1.0) mg/dL AST 11 L (15-37) U/L ALT 15 (12-78) U/L Alkaline Phosphatase 57 (45-117) U/L Albumin 3.2 L (3.4-5.0) g/dL - Imaging Impressions Abdomen/Pelvis CT 10/19/17 12:23 CONCLUSION: 1. No evidence of acute process in the abdomen or pelvis. 2. Cardiomegaly with small bilateral effusions. 3. Stable calcification lower pole of the left kidney. 4. Stable small nonspecific lymph nodes within the retroperitoneum. Chest X-Ray 10/19/17 12:23 CONCLUSION: Cardiomegaly with mild vascular congestion. No evidence of pulmonary edema or consolidating infiltrate. Caprini VTE Risk Assessment Caprini VTE Risk Assessment: Moderate/High Risk (score >= 2) Caprini Risk Assessment Model: Point Value = 1 Point Value = 2 Point Value = 3 Point Value = 5 Age 41-60 Minor surgery BMI > 25 kg/m2 Swollen legs Varicose veins or History of unexplained or recurrent spontaneous Oral contraceptives or hormone replacement Sepsis (< 1 month) Serious lung disease, including pneumonia (< 1 month) Abnormal pulmonary function Acute myocardial infarction Congestive heart failure (< 1 month) History of inflammatory bowel disease Medical patient at bed rest Age 61-74 Arthroscopic surgery Major open surgery (> 45 min) Laparoscopic surgery (> 45 min) Malignancy Confined to bed (> 72 hours) Immobilizing plaster cast Central venous access Age >= 75 History of VTE Family history of VTE Factor V Leiden Prothrombin [id number] Lupus anticoagulant Anticardiolipin antibodies Elevated serum homocysteine Heparin-induced thrombocytopenia Other congenital or acquired thrombophilia Stroke (< 1 month) Elective arthroplasty Hip, pelvis, or leg fracture Acute spinal cord injury (< 1 month) Prophylaxis Regimen: Total Risk Factor Score Risk Level Prophylaxis Regimen 0-1 Low Early ambulation 2 Moderate Order ONE of the following: *Sequential Compression Device (SCD) *Heparin 5000 units SQ BID 3-4 Higher Order ONE of the following medications: *Heparin 5000 units SQ TID *Enoxaparin/Lovenox 40 mg SQ daily (WT < 150 kg, CrCl > 30 mL/min) *Enoxaparin/Lovenox 30 mg SQ daily (WT < 150 kg, CrCl > 10-29 mL/min) *Enoxaparin/Lovenox 30 mg SQ BID (WT < 150 kg, CrCl > 30 mL/min) AND/OR *Sequential Compression Device (SCD) 5 or more Highest Order ONE of the following medications: *Heparin 5000 units SQ TID (Preferred with Epidurals) *Enoxaparin/Lovenox 40 mg SQ daily (WT < 150 kg, CrCl > 30 mL/min) *Enoxaparin/Lovenox 30 mg SQ daily (WT < 150 kg, CrCl > 10-29 mL/min) *Enoxaparin/Lovenox 30 mg SQ BID (WT < 150 kg, CrCl > 30 mL/min) AND *Sequential Compression Device (SCD) Assessment and Plan - Assessment (1) GI (gastrointestinal bleed) Code(s): K92.2 - Gastrointestinal hemorrhage, unspecified Status: Acute Plan: GIB/Melena/Hematemesis Anemia Hx of ulcer - Pt is a 57 y/o male with ESRD on HD on M/W/F, HTN, anemia of chronic disease, COPD, chronic back pain BPH and OA. - He presented to the ED at [facility] on 10/19/17 for evaluation of GI bleed. Patient reported that for the past week, he has been having upper abdominal pain and nausea. He has been able to eat and drink without much difficulty. Then yesterday he noticed that he had dark tarry stool. Then this morning he had an episode of vomiting and noted blood. Patient called his lubrication technician, Dr. Cabello and was told to come to the emergency room for evaluation. - Pt has had previous GIB in 11/2016 and he had a EGD/colonoscopy on 11/22/16 which noted LA Class A esophagitis, single ulcer ranging between 5-9mm in size was found in the gastric antrum s/p APC applied to the site with complete hemostasis achieved, gastritis in the gastric antrum, normal duodenal mucosa in the bulb and second portion of the duodenum, and the colonoscopy noted a poor prep, inadequate exam with internal/external hemorrhoids. He then had followup with GI and subsequently underwent repeat EGD on 01/05/[address] Cabello which note duodenitis as well as a hiatal hernia and a colonoscopy performed by Dr. Cabello on February 18, 2017 which noted the colonic mucosa appeared normal, there are a few small diverticula in the sigmoid and descending colon, and internal/ external hemorrhoids. - Pts labs at admission noted Hgb 8.7/Hct 27.0. He had reported grossly melanotic stool in the ED. - Consult GI - Pt started on Protonix gtt in the ED - Pt insisting on a diet tonight, give full liquid diet and the NPO after MN - Monitor for any active GIB - Repeat labs in AM - Supportive care - DVT prophylaxis with SCDs ESRD on HD - Pt follows with Dr. Bar, and he will be consulted - He receives HD on - Pt is being evaluated for renal transplant as well. HTN, poorly controlled - Resume home BP meds - PRN clonidine - PRN Vasotec (2) ESRD (end stage renal disease) on dialysis Code(s): N18.6 - End stage renal disease; Z99.2 - Dependence on renal dialysis Status: Acute (3) HTN (hypertension) Code(s): I10 - Essential (primary) hypertension Status: Acute - Attending Attestation Patient examined. Assessment and plan formulated with Piedad Mustafa PA-C. I agree with the above. (1) GI (gastrointestinal bleed) Qualifiers: GI bleed type/associated pathology: melena Qualified Code(s): K92.1 - Kiesha
[2017-10-19] MEDS ORDERED: Acetaminophen 325 MG Tablet PO PRN (15:35)
[2017-10-19 16:34] LABS: Bacteria,Urine Rare /hpf; Bilirubin,Urine Negative (Negative); Clarity,Urine Clear (Clear); Color,Urine Yellow (Yellw/Straw); Glucose,Urine (UA) Negative (Negative); Leukocyte Esterase,Urine Trace (Negative); Nitrite,Urine Negative (Negative); Specific Gravity,Urine 1.012 (1.002-1.035)
[2017-10-19] MEDS: Famotidine 20 MG Tablet PO SCH (21:16)
[2017-10-19] MEDS: Minoxidil 2.5 MG Tablet PO SCH (21:17)
[2017-10-20] MEDS: Pantoprazole Inj 80 MG in Sodium Chlor 0.9% Inj 100 ML IV.CONT SCH (00:27)
[2017-10-20 08:27] LABS: Baso # (Auto) 0.1 th/mm3 (0.0-0.2); Baso % (Auto) 2.1 % (0.0-2.0); Eos # (Auto) 0.3 th/mm3 (0.0-0.4); Eos % (Auto) 9.2 % (0.0-4.0); Hematocrit 26.6 % (39.0-51.0); Hemoglobin 8.7 gm/dL (13.0-17.0); Lymph % (Auto) 30.8 % (9.0-44.0); Mean Corpuscular HGB Conc 32.6 % (32.0-36.0); Mean Corpuscular Hemoglobin 28.5 pg (27.0-34.0); Mean Corpuscular Volume 87.5 fL (80.0-100.0); Mean Platelet Volume 8.5 fL (7.0-11.0); Mono # (Auto) 0.3 th/mm3 (0.0-0.9); Neut # (Auto) 1.6 th/mm3 (1.8-7.7); Neut % (Auto) 47.9 % (16.0-70.0); Platelet Count 192 th/mm3 (150-450); Red Blood Count 3.03 mil/mm3 (4.50-5.90); Red Cell Distribution Width 15.3 % (11.6-17.2); White Blood Count 3.4 th/mm3 (4.0-11.0)
[2017-10-20 08:48] LABS: Carbon Dioxide 21.3 meq/L (21.0-32.0); Potassium 4.1 meq/L (3.5-5.1)
[2017-10-20] MEDS ORDERED: Sod Chloride 0.9% Inj 1,000 ML OTHER PRN ×2 (08:54)
[2017-10-20] MEDS ORDERED: Gelatin 12 MM/7 MM Topical Foam TOPICAL PRN (08:54)
[2017-10-20] MEDS ORDERED: Acetaminophen 325 MG Tablet PO PRN (08:54)
[2017-10-20] MEDS ORDERED: Sod Chloride 0.9% Inj 1,000 ML IV.CONT PRN (08:54)
[2017-10-20] MEDS ORDERED: Heparin 10,000 UNITS/10 ML Vial (for IV use) OTHER PRN ×2 (08:54)
[2017-10-20] MEDS ORDERED: Albumin Human 25% Inj 100 ML IV.SIG PRN (08:54)
--- NOTE | 2017-10-20 09:32 | P.PNNP ---
Subjective Interval history: Reports nausea, melanic stools, pruritus, and increased shortness of breath. Protonix gtt infusing. Hemodialysis planned for today will remove fluid as tolerated. <Lynne May - Last Filed: 10/20/17 09:32> Physical Exam Vital signs: Vital Signs 10/19/17 10:56 10/19/17 14:43 10/19/17 16:00 Temperature 99.1 F 98.9 F Pulse Rate 74 79 69 Respiratory Rate 14 16 18 Blood Pressure 207/92 H 184/87 H Pulse Oximetry 96 98 98 10/19/17 16:29 10/19/17 20:00 10/20/17 00:49 Temperature 98.6 F 97.8 F Pulse Rate 76 71 76 Respiratory Rate 16 20 18 Blood Pressure 192/89 H 175/86 H 169/79 H Pulse Oximetry 98 99 97 10/20/17 04:55 Temperature 98.4 F Pulse Rate 79 Respiratory Rate 18 Blood Pressure 168/79 H Pulse Oximetry 96 Intake & Output 10/19/17 10/20/17 10/20/17 18:59 06:59 18:59 Intake Total 1035 / 1035 100 / 100 Output Total 400 / 400 Balance 1035 / 1035 -300 / -300 Weight 104.326 kg 104 kg Intake: IV 1035 / 1035 100 / 100 Protonix Inj 80 MG In NS Inj 100 / 100 100 ML @ 10 mls/hr IV.CONT CONT ARELY Rx#:[id number] Protonix Inj 80 MG In NS Inj 35 35 / 35 ML @ 420 mls/hr IV.SIG BOLUS ONE Rx#:[id number] NS Inj 1,000 ML @ Wide Open IV. 1000 / 1000 SIG BOLUS ONE Rx#:[id number] Output: Urine 400 / 400 Other: Date of Last Bowel Movement 10/18/17 10/19/17 Narrative: GENERAL: Well-developed well-nourished. Appears mildly distressed. SKIN: Warm and dry. No lesions noted. CARDIOVASCULAR: Regular rate and rhythm. No murmur appreciated. AVF with positive thrill and bruit RESPIRATORY: No accessory muscle use. Clear to auscultation. Breath sounds equal bilaterally. Trach midline GASTROINTESTINAL: Abdomen soft and flat. Tenderness note on palpation. MUSCULOSKELETAL: No clubbing or cyanosis. Mild lower extremity edema. NEUROLOGICAL: Awake and alert. Moves upper and lower extremities <Lynne May - Last Filed: 10/20/17 09:32> Assessment and Plan - Assessment (1) ESRD (end stage renal disease) on dialysis Code(s): N18.6 - End stage renal disease; Z99.2 - Dependence on renal dialysis Status: Acute Plan: End stage renal disease on hemodialysis on Wednesday, Wednesday, and Wednesday. Last hemodialysis was on Wednesday Plan Continue Bumex and hydroxyzine Avoid IVF Epogen with hemodialysis Plan for hemodialysis today will remove fluid as tolerated. Orders placed. Labs in AM (2) GI (gastrointestinal bleed) Code(s): K92.2 - Gastrointestinal hemorrhage, unspecified Status: Acute Qualifiers: GI bleed type/associated pathology: melena Qualified Code(s): K92.1 - Melena Plan: GI consulted, on protonix gtt NPO (3) HTN (hypertension) Code(s): I10 - Essential (primary) hypertension Status: Acute Plan: Expect improvement after hemodialysis On Clonidine, hydralazine, labetalol, Cozaar, minoxidil, and Procardia. PRN are available. <Lynne May - Last Filed: 10/20/17 09:32> - Assessment (1) ESRD (end stage renal disease) on dialysis Code(s): N18.6 - End stage renal disease; Z99.2 - Dependence on renal dialysis Status: Acute Plan: Patient seen and examined, agree with above. Possible D/C today. (2) GI (gastrointestinal bleed) Code(s): K92.2 - Gastrointestinal hemorrhage, unspecified Status: Acute Qualifiers: GI bleed type/associated pathology: melena Qualified Code(s): K92.1 - Melena (3) HTN (hypertension) Code(s): I10 - Essential (primary) hypertension Status: Acute <Corey Bar - Last Filed: 10/28/17 09:45>
[2017-10-20] MEDS: Minoxidil 2.5 MG Tablet PO SCH (09:35)
[2017-10-20] MEDS: Famotidine 20 MG Tablet PO SCH (09:35)
--- NOTE | 2017-10-20 10:59 | MB ---
cc: Corey Bar MD DATE: 10/19/2017 HISTORY OF PRESENT ILLNESS: This is a 57-year-old male with a past medical history of hypertension, chronic anemia, chronic obstructive pulmonary disease, osteoarthritis, end-stage renal disease on hemodialysis 3 times per week; was sent to the hospital after he called his hand mexican food maker. He has melena and vomiting fresh blood. I was called to see the patient for the management of hemodialysis. He has been on hemodialysis Wednesday, Wednesday and Wednesday and I have been following him as an outpatient. The patient has a history of GI bleeding in the past and has been following with GI and he was diagnosed with gastric ulcer and esophagitis, and he was getting the treatment and following with Dr. Cabello. The patient was complaining of epigastric pain when I saw him on Wednesday in the dialysis and then when he went home, the pain increased and then in the morning he vomited blood and he had a bowel movement with blackish stool. He called the GI doctor, Dr. Cabello's office and they told him to go to the hospital. He denies any dizziness. The patient has fluctuating hemoglobin. He has been on Epogen. The patient is also getting workup for renal transplant and has abnormal echocardiogram and then was told that he will need a cardiac catheterization. PAST MEDICAL HISTORY: Hypertension, ischemic heart disease, chronic anemia, chronic obstructive pulmonary disease, benign prostatic hypertrophy, end-stage renal disease on hemodialysis. PAST SURGICAL HISTORY: History of AV fistula surgery, right wrist surgery, appendicectomy, endoscopy and colonoscopies. REVIEW OF SYSTEMS: The patient denies any shortness of breath, no chest pain. No palpitation. No history of fever. No headache or dizziness. He has epigastric pain and vomited fresh blood. There is history of melena. He has mild swelling in his lower legs and usually does not allow too much fluid removal with dialysis because of the cramping, but his weight has been gradually decreasing and he has been watching his fluid intake. SOCIAL HEALTH HISTORY: The patient is . There is no recent history of smoking or alcoholism. FAMILY HISTORY: Noncontributory. ALLERGIES: HE IS ALLERGIC TO CEFAZOLIN AND MORPHINE. MEDICATIONS: Currently, he is on following medications: 1. Tylenol as needed. 2. Milk of Magnesia. 3. Bumex 2 mg b.i.d. 4. Catapres p.r.n. 5. Catapres 0.1 mg b.i.d. 6. Nifedipine 60 mg b.i.d. 7. Minoxidil 2.5 mg b.i.d. 8. Cozaar 50 mg b.i.d. 9. Pepcid 10 mg b.i.d. 10. Labetalol 300 mg t.i.d. 11. Hydralazine 100 mg t.i.d. 12. Atarax 25 mg t.i.d. 13. Zofran as needed. PHYSICAL EXAMINATION: GENERAL: Patient is awake, alert. He is not in acute distress. VITAL SIGNS: His last blood pressure 184/87, temperature is 99.1, oxygen saturation 98% on room air. HEENT: Pupils are mid-constricted. Nonicteric sclerae. Conjunctivae are pale. NECK: Supple. JVD is not elevated. LUNGS: The patient has bilateral decreased air entry with occasional wheezing. HEART: S1, S2. Regular rate and rhythm. ABDOMEN: Distended, soft, lax. There is mild epigastric tenderness. There is no rebound, rigidity. Bowel sounds positive. EXTREMITIES: He has mild edema in the lower legs. LABORATORY DATA: WBC count is 143, potassium 4.8, chloride 108, bicarbonate 23.3, BUN 82, creatinine 8.1. AST is 11, ALT is 15, total protein 6.2, albumin is 3.2. WBC count is 3.9, hemoglobin 8.7, platelet count of 180, neutrophils 64.9%, eosinophil 5.7%. INR is 1.1. Urinalysis showing protein 100, RBC 1 and WBC 8. IMAGING STUDIES: The patient had a CT scan of the abdomen and pelvis done, which shows that he has no evidence of acute process in the abdomen and pelvis, cardiomegaly with some small bilateral effusion, calcification in lower pole of the left kidney, nonspecific lymph nodes in the retroperitoneum. IMAGING: Chest x-ray was done which shows that he has cardiomegaly with some vascular congestion. ASSESSMENT AND PLAN: 1. Gastrointestinal bleeding. 2. Anemia. 3. End-stage renal disease, on hemodialysis. 4. Hypertension: The patient has a history of peptic ulcer disease and esophagitis and has now gastrointestinal bleeding. Gastroenterology has been consulted. He will need endoscopy. He has been on hemodialysis Wednesday, Wednesday and Wednesday and we will dialyze him tomorrow again. Follow the hemoglobin and transfuse as needed; Epogen with dialysis. Blood pressure is slightly on the higher side. We will follow and adjust medication as needed. Thank you for the consultation. The patient was seen by me yesterday in the emergency room and this is a late dictation for 10/19/2017. MD FATIMAH Shaw/eliel , 09:59 AM , 10:10 AM
--- NOTE | 2017-10-20 11:15 | P.CONGI ---
History of Present Illness Consult date: 10/20/17 Consult reason: melena Chief complaint: GI Bleed History of Present Illness: This is a 57 yo M with PMH significant for ESRD on HD, HTN, and previous GIB secondary to gastric ulcer. Pt presented to the ER yesterday with complaints of melena, hematemesis, and abdominal pain. Pt reports symptoms began on Wednesday, has been having 2-3 episodes of melena a daily. Denies taking iron supplements and Pepto Bismol. States yesterday he had nausea with one episode of bright red blood and coffee ground emesis. Also has been having intermittent pain in his epigastric area, worse on an empty stomach, described as a burning sensation. Denies any dysphagia, odynophagia, and heartburn. Denies taking NSAIDs, ETOH, smoking, and taking blood thinners. Last colonoscopy in February revealed normal colonic mucosa, few small diverticula in the sigmoid and descending colon, internal and external hemorrhoids. Last EGD in Dec revealed duodenitis in the second portion of the duodenum, nodular mucosa in the antrum, esophagitis in the distal esophagus, and hiatal hernia. Pathology concerning for H. Pylori infection, pt had stool sample which was consistent with this. Of note, pt did have EGD in November which revealed gastric ulcer requiring APC. <Danielle Ivan - Last Filed: 10/20/17 11:03> Review of Systems Constitutional: Reports fatigue, Reports lack of energy Gastrointestinal: Reports abdominal pain, Reports black, tarry stools, Reports nausea, Reports vomiting, Denies bright, red blood in stools, Denies heartburn <Danielle Ivan - Last Filed: 10/20/17 11:03> [facility] - History History Provided By: Patient - Medical History Medical History: Medical History (Last Updated 10/19/17 @ 12:49 by Piedad Negrete) ESRD (end stage renal disease) on dialysis [place]ist[place] H/O: HTN (hypertension) Multiple renal calculi Osteoarthritis - Surgical History Surgical History: Surgical History (Last Updated 10/19/17 @ 12:49 by Piedad Negrete) History of appendectomy - Tobacco History Second Hand Smoke Exposure: No Tobacco Use In Past 30 Days: No Smoking Status: Unknown if ever smoked Tobacco Type: Cigarettes - Alcohol History How Often Do You Have a Drink Containing Alcohol: Never - Substance Use History Substance History: No History of Abuse - Travel History Recent Travel in the [place] Within the Last 8 Weeks: No Recent Travel Out of the Country Within the Last 8 Weeks: No - Immunization History Tetanus Immunization: Unsure Hx Influenza Vaccine This Season: Unable to Assess <Danielle Ivan - Last Filed: 10/20/17 11:03> - Medical History Medical History: Medical History (Last Updated 10/19/17 @ 12:49 by Piedad Negrete) ESRD (end stage renal disease) on dialysis Fistula H/O: HTN (hypertension) Multiple renal calculi Osteoarthritis - Surgical History Surgical History: Surgical History (Last Updated 10/19/17 @ 12:49 by Piedad Negrete) History of appendectomy <Sergio Davis - Last Filed: 10/20/17 16:15> Medications and Allergies Active Medications: Active Medications Acetaminophen (Tylenol) 650 mg PO Q4H PRN PRN Reason: Temp > 100.4 Acetaminophen (Tylenol) 650 mg PO UNSCH PRN PRN Reason: SEE LABEL COMMENTS Al Hydroxide/Mg Hydroxide (Milk Of Ashok Andersen) 30 ml PO Q12H PRN PRN Reason: Mild Constipation Bumetanide (Bumex) 2 mg PO BID [facility] Last Admin: 10/20/17 09:35 Dose: 2 mg Clonidine HCl (Catapres) 0.1 mg PO Q6H PRN PRN Reason: systolib BP over 170 Clonidine HCl (Catapres) 0.1 mg PO BID [facility] Last Admin: 10/20/17 09:35 Dose: 0.1 mg Clonidine HCl (Catapres) 0.1 mg PO UNSCH PRN PRN Reason: SEE LABEL COMMENTS Diphenhydramine HCl (Benadryl) 25 mg PO UNSCH PRN PRN Reason: SEE LABEL COMMENTS Enalaprilat (Vasotec Inj) 1.25 mg IV.PUSH Q6H PRN PRN Reason: systolic BP over 170 Epoetin Edmond (Epogen Inj) 10,000 unit IV.PUSH UNSCH PRN PRN Reason: SEE LABEL COMMENTS Famotidine (Pepcid) 10 mg PO BID [facility] Last Admin: 10/20/17 09:35 Dose: 10 mg Gelatin (Gelfoam 12 Mm/7 Mm Topical) 1 foam TOPICAL PRN PRN PRN Reason: help stop bleeding from site Gentamicin Sulfate (Gentamicin Inj) 20 mg OTHER WITH DIALYSIS PRN PRN Reason: Dwell Gentamycin Lock Heparin Sodium (Porcine) (Heparin Inj) 8,000 units OTHER WITH DIALYSIS PRN PRN Reason: for machine prime Heparin Sodium (Porcine) (Heparin Inj) 1,000 units OTHER WITH DIALYSIS PRN PRN Reason: Dwell Heparin to Fill Catheter Hydralazine HCl (Apresoline) 100 mg PO TID [facility] Last Admin: 10/20/17 09:34 Dose: 100 mg Hydroxyzine HCl (Atarax) 25 mg PO TID [facility] Last Admin: 10/20/17 09:35 Dose: 25 mg Pantoprazole Sodium 80 mg/ (Sodium Chloride) 100 mls @ 10 mls/hr IV.CONT CONT [facility] Last Infusion: 10/20/17 09:44 Dose: Infused Albumin Human (Flexbumin 25% Inj) 100 mls @ 60 mls/hr IV.SIG WITH DIALYSIS PRN PRN Reason: hypotension / volume replace Sodium Chloride (Ns Inj) 1,000 mls @ 0 mls/hr OTHER .Q0M PRN PRN Reason: for prime and rinse back Sodium Chloride (Ns Inj) 1,000 mls @ 200 mls/hr OTHER .Q5H PRN PRN Reason: for dialyzer flush PRN Sodium Chloride (Ns Inj) 1,000 mls @ 0 mls/hr IV.CONT .Q0M PRN PRN Reason: hypotension / volume replace Labetalol HCl (Trandate) 300 mg PO TID [facility] Last Admin: 10/20/17 09:35 Dose: 300 mg Losartan Potassium (Cozaar) 50 mg PO BID [facility] Last Admin: 10/20/17 09:34 Dose: 50 mg Mannitol (Mannitol Inj) 12.5 gm IV.PUSH UNSCH PRN PRN Reason: hypotension / volume replace Minoxidil (Loniten) 2.5 mg PO BID [facility] Last Admin: 10/20/17 09:35 Dose: 2.5 mg Nifedipine (Procardia Xl) 60 mg PO BID [facility] Last Admin: 10/20/17 09:35 Dose: 60 mg Nitroglycerin (Nitrostat Sl) 0.4 mg SL Q5M PRN PRN Reason: CHEST PAIN Ondansetron HCl (Zofran Inj) 4 mg IV.PUSH Q6H PRN PRN Reason: NAUSEA OR VOMITING Ondansetron HCl (Zofran Inj) 4 mg IV.PUSH UNSCH PRN PRN Reason: NAUSEA OR VOMITING Sodium Chloride (Ns Flush) 2 ml IV.FLUSH PRN PRN PRN Reason: FLUSH AFTER USING IV ACCESS Sodium Chloride (Ns Flush) 5 ml IV.FLUSH PRN PRN PRN Reason: flush each lumen during HD <Danielle Ivan - Last Filed: 10/20/17 11:03> Active Medications: Active Medications Acetaminophen (Tylenol) 650 mg PO Q4H PRN PRN Reason: Temp > 100.4 Acetaminophen (Tylenol) 650 mg PO UNSCH PRN PRN Reason: SEE LABEL COMMENTS Al Hydroxide/Mg Hydroxide (Milk Of Ashok Liq) 30 ml PO Q12H PRN PRN Reason: Mild Constipation Bumetanide (Bumex) 2 mg PO BID [facility] Last Admin: 10/20/17 09:35 Dose: 2 mg Clonidine HCl (Catapres) 0.1 mg PO Q6H PRN PRN Reason: systolib BP over 170 Clonidine HCl (Catapres) 0.1 mg PO BID [facility] Last Admin: 10/20/17 09:35 Dose: 0.1 mg Clonidine HCl (Catapres) 0.1 mg PO UNSCH PRN PRN Reason: SEE LABEL COMMENTS Diphenhydramine HCl (Benadryl) 25 mg PO UNSCH PRN PRN Reason: SEE LABEL COMMENTS Enalaprilat (Vasotec Inj) 1.25 mg IV.PUSH Q6H PRN PRN Reason: systolic BP over 170 Epoetin Edmond (Epogen Inj) 10,000 unit IV.PUSH UNSCH PRN PRN Reason: SEE LABEL COMMENTS Last Admin: 10/20/17 12:20 Dose: 10,000 unit Famotidine (Pepcid) 10 mg PO BID [facility] Last Admin: 10/20/17 09:35 Dose: 10 mg Gelatin (Gelfoam 12 Mm/7 Mm Topical) 1 foam TOPICAL PRN PRN PRN Reason: help stop bleeding from site Last Admin: 10/20/17 12:20 Dose: 1 foam Gentamicin Sulfate (Gentamicin Inj) 20 mg OTHER WITH DIALYSIS PRN PRN Reason: Dwell Gentamycin Lock Heparin Sodium (Porcine) (Heparin Inj) 8,000 units OTHER WITH DIALYSIS PRN PRN Reason: for machine prime Heparin Sodium (Porcine) (Heparin Inj) 1,000 units OTHER WITH DIALYSIS PRN PRN Reason: Dwell Heparin to Fill Catheter Hydralazine HCl (Apresoline) 100 mg PO TID [facility] Last Admin: 10/20/17 14:19 Dose: Not Given Hydroxyzine HCl (Atarax) 25 mg PO TID [facility] Last Admin: 10/20/17 14:19 Dose: Not Given Pantoprazole Sodium 80 mg/ (Sodium Chloride) 100 mls @ 10 mls/hr IV.CONT CONT [facility] Last Infusion: 10/20/17 09:44 Dose: Infused Albumin Human (Flexbumin 25% Inj) 100 mls @ 60 mls/hr IV.SIG WITH DIALYSIS PRN PRN Reason: hypotension / volume replace Sodium Chloride (Ns Inj) 1,000 mls @ 0 mls/hr OTHER .Q0M PRN PRN Reason: for prime and rinse back Sodium Chloride (Ns Inj) 1,000 mls @ 200 mls/hr OTHER .Q5H PRN PRN Reason: for dialyzer flush PRN Sodium Chloride (Ns Inj) 1,000 mls @ 0 mls/hr IV.CONT .Q0M PRN PRN Reason: hypotension / volume replace Labetalol HCl (Trandate) 300 mg PO TID [facility] Last Admin: 10/20/17 14:19 Dose: Not Given Losartan Potassium (Cozaar) 50 mg PO BID [facility] Last Admin: 10/20/17 09:34 Dose: 50 mg Mannitol (Mannitol Inj) 12.5 gm IV.PUSH UNSCH PRN PRN Reason: hypotension / volume replace Minoxidil (Loniten) 2.5 mg PO BID [facility] Last Admin: 10/20/17 09:35 Dose: 2.5 mg Nifedipine (Procardia Xl) 60 mg PO BID [facility] Last Admin: 10/20/17 09:35 Dose: 60 mg Nitroglycerin (Nitrostat Sl) 0.4 mg SL Q5M PRN PRN Reason: CHEST PAIN Ondansetron HCl (Zofran Inj) 4 mg IV.PUSH Q6H PRN PRN Reason: NAUSEA OR VOMITING Ondansetron HCl (Zofran Inj) 4 mg IV.PUSH UNSCH PRN PRN Reason: NAUSEA OR VOMITING Sodium Chloride (Ns Flush) 2 ml IV.FLUSH PRN PRN PRN Reason: FLUSH AFTER USING IV ACCESS Sodium Chloride (Ns Flush) 5 ml IV.FLUSH PRN PRN PRN Reason: flush each lumen during HD <Sergio Davis A - Last Filed: 10/20/17 16:15> Allergies Allergy/AdvReac Type Severity Reaction Status Date / Time cefazolin Allergy Severe Hives Verified 10/19/17 12:56 morphine Allergy Severe Nausea/Vomi Verified 10/19/17 12:56 ting Home Medications Medication Instructions Recorded Confirmed Type bumetanide 2 mg PO BID 10/19/17 10/19/17 History clonidine HCl 0.1 mg PO BID 10/19/17 10/19/17 History hydralazine 100 mg PO TID 10/19/17 10/19/17 History hydroxyzine HCl 25 mg PO TID 10/19/17 10/19/17 History labetalol 300 mg PO TID 10/19/17 10/19/17 History losartan 50 mg PO BID 10/19/17 10/19/17 History minoxidil 2.5 mg PO BID 10/19/17 10/19/17 History nifedipine 60 mg PO BID 10/19/17 10/19/17 History ranitidine HCl 300 mg PO BID 10/19/17 10/19/17 History Exam Vital signs: Vital Signs 10/19/17 14:43 10/19/17 16:00 10/19/17 16:29 Temperature 98.9 F Pulse Rate 79 69 76 Respiratory Rate 16 18 16 Blood Pressure 184/87 H 192/89 H Pulse Oximetry 98 98 98 10/19/17 20:00 10/20/17 00:49 10/20/17 04:55 Temperature 98.6 F 97.8 F 98.4 F Pulse Rate 71 76 79 Respiratory Rate 20 18 18 Blood Pressure 175/86 H 169/79 H 168/79 H Pulse Oximetry 99 97 96 10/20/17 08:00 Temperature 98.6 F Pulse Rate 71 Respiratory Rate 18 Blood Pressure 183/85 H Pulse Oximetry 96 Intake & Output 10/19/17 10/20/17 10/20/17 18:59 06:59 18:59 Intake Total 1035 / 1035 100 / 100 100 / 100 Output Total 400 / 400 Balance 1035 / 1035 -300 / -300 100 / 100 Weight 104.326 kg 104 kg Intake: IV 1035 / 1035 100 / 100 100 / 100 Protonix Inj 80 MG In NS Inj 100 / 100 100 / 100 100 ML @ 10 mls/hr IV.CONT CONT [facility] Rx#:[id number] Protonix Inj 80 MG In NS Inj 35 35 / 35 ML @ 420 mls/hr IV.SIG BOLUS ONE Rx#:[id number] NS Inj 1,000 ML @ Wide Open IV. 1000 / 1000 SIG BOLUS ONE Rx#:[id number] Output: Urine 400 / 400 Other: Date of Last Bowel Movement 10/18/17 10/19/17 - Constitutional no acute distress - Routine HEENT Exam Head: Present: normocephalic, atraumatic - Routine Respiratory Exam Absent: accessory muscle use - Routine Cardiovascular Exam Present: RRR - Routine Abdominal Exam Present: soft, normoactive bowel sounds. Absent: tenderness, distended - Routine Skin Exam Present: dry, warm - Routine Neurological Exam Present: alert, oriented X3 <Danielle Ivan - Last Filed: 10/20/17 11:03> Vital signs: Vital Signs 10/19/17 16:29 10/19/17 20:00 10/20/17 00:49 Temperature 98.6 F 97.8 F Pulse Rate 76 71 76 Respiratory Rate 16 20 18 Blood Pressure 192/89 H 175/86 H 169/79 H Pulse Oximetry 98 99 97 10/20/17 04:55 10/20/17 08:00 10/20/17 09:35 Temperature 98.4 F 98.6 F Pulse Rate 79 71 Respiratory Rate 18 18 Blood Pressure 168/79 H 183/85 H Pulse Oximetry 96 96 96 Intake & Output 10/19/17 10/20/17 10/20/17 18:59 06:59 18:59 Intake Total 1035 / 1035 100 / 100 150 / 150 Output Total 400 / 400 3500 / 3500 Balance 1035 / 1035 -300 / -300 -3350 / -3350 Weight 104.326 kg 104 kg Intake: IV 1035 / 1035 100 / 100 100 / 100 Protonix Inj 80 MG In NS Inj 100 / 100 100 / 100 100 ML @ 10 mls/hr IV.CONT CONT [facility] Rx#:[id number] Protonix Inj 80 MG In NS Inj 35 35 / 35 ML @ 420 mls/hr IV.SIG BOLUS ONE Rx#:[id number] NS Inj 1,000 ML @ Wide Open IV. 1000 / 1000 SIG BOLUS ONE Rx#:[id number] Anesthesia Amount 50 / 50 Output: Urine 400 / 400 Hemodialysis Amount 3500 / 3500 Other: Date of Last Bowel Movement 10/18/17 10/19/17 10/19/17 <Sergio Davis A - Last Filed: 10/20/17 16:15> Results - Labs CBC & Chem 7: 10/20/17 07:28 10/20/17 07:28 Labs: Laboratory Results - last 24 hr 10/19/17 10/19/17 10/19/17 12:30 12:30 12:30 WBC 3.9 L RBC 3.07 L Hgb 8.7 L Hct 27.0 L MCV 87.8 MCH 28.4 MCHC 32.3 RDW 15.3 Plt Count 180 MPV 8.1 Neut % (Auto) 64.9 Lymph % (Auto) 16.9 Pine % (Auto) 11.9 H Eos % (Auto) 5.7 H Baso % (Auto) 0.6 Neut # (Auto) 2.5 Lymph # (Auto) 0.7 L Pine # (Auto) 0.5 Eos # (Auto) 0.2 Baso # (Auto) 0.0 WBC Differential . Differential Comment Auto diff final PT 11.4 INR 1.1 APTT 27.7 Sodium Potassium Chloride Carbon Dioxide Anion Gap BUN Creatinine Estimated GFR Random Glucose Calcium Total Bilirubin AST ALT Alkaline Phosphatase Total Protein Albumin Lipase Urine Color Urine Clarity Urine pH Ur Specific [place] Urine Protein Urine Glucose (UA) Urine Ketones Urine Occult Blood Urine Nitrate Urine Bilirubin Urine Urobilinogen Ur Leukocyte Esterase Urine RBC Urine WBC Urine Bacteria Micro UA Comment Ur Microscopic Review Urine Culture Comments Blood Type B Positive Antibody Screen Negative 10/19/17 10/19/17 10/20/17 12:30 14:40 07:28 WBC 3.4 L RBC 3.03 L Hgb 8.7 L Hct 26.6 L MCV 87.5 MCH 28.5 MCHC 32.6 RDW 15.3 Plt Count 192 MPV 8.5 Neut % (Auto) 47.9 Lymph % (Auto) 30.8 Pine % (Auto) 10.0 H Eos % (Auto) 9.2 H Baso % (Auto) 2.1 H Neut # (Auto) 1.6 L Lymph # (Auto) 1.0 Pine # (Auto) 0.3 Eos # (Auto) 0.3 Baso # (Auto) 0.1 WBC Differential . Differential Comment Auto diff final PT INR APTT Sodium 143 Potassium 4.8 Chloride 108 H Carbon Dioxide 23.3 Anion Gap 12 BUN 82 H Creatinine 8.15 H Estimated GFR 8 L Random Glucose 81 Calcium 7.7 L Total Bilirubin 0.5 AST 11 L ALT 15 Alkaline Phosphatase 57 Total Protein 6.2 L Albumin 3.2 L Lipase 190 Urine Color Yellow Urine Clarity Clear Urine pH 5.0 Ur Specific [place] 1.012 Urine Protein 100 H Urine Glucose (UA) Negative Urine Ketones Negative Urine Occult Blood Negative Urine Nitrate Negative Urine Bilirubin Negative Urine Urobilinogen Less than 2 Ur Leukocyte Esterase Trace H Urine RBC 1 Urine WBC 8 H Urine Bacteria Rare H Micro UA Comment Culture not ind Ur Microscopic Review Not Reportable Urine Culture Comments Culture not ind Blood Type Antibody Screen 10/20/17 07:28 WBC RBC Hgb Hct MCV MCH MCHC RDW Plt Count MPV Neut % (Auto) Lymph % (Auto) Pine % (Auto) Eos % (Auto) Baso % (Auto) Neut # (Auto) Lymph # (Auto) Pine # (Auto) Eos # (Auto) Baso # (Auto) WBC Differential Differential Comment PT INR APTT Sodium 142 Potassium 4.1 Chloride 107 Carbon Dioxide 21.3 Anion Gap 14 BUN 93 H Creatinine 9.57 H Estimated GFR 7 L Random Glucose 81 Calcium 8.0 L Total Bilirubin AST ALT Alkaline Phosphatase Total Protein Albumin Lipase Urine Color Urine Clarity Urine pH Ur Specific [place] Urine Protein Urine Glucose (UA) Urine Ketones Urine Occult Blood Urine Nitrate Urine Bilirubin Urine Urobilinogen Ur Leukocyte Esterase Urine RBC Urine WBC Urine Bacteria Micro UA Comment Ur Microscopic Review Urine Culture Comments Blood Type Antibody Screen - Imaging Impressions Abdomen/Pelvis CT 10/19/17 12:23 CONCLUSION: 1. No evidence of acute process in the abdomen or pelvis. 2. Cardiomegaly with small bilateral effusions. 3. Stable calcification lower pole of the left kidney. 4. Stable small nonspecific lymph nodes within the retroperitoneum. Chest X-Ray 10/19/17 12:23 CONCLUSION: Cardiomegaly with mild vascular congestion. No evidence of pulmonary edema or consolidating infiltrate. <Danielle Ivan - Last Filed: 10/20/17 11:03> - Labs CBC & Chem 7: 10/20/17 07:28 10/20/17 07:28 Labs: Laboratory Results - last 24 hr 10/19/17 10/20/17 10/20/17 14:40 07:28 07:28 WBC 3.4 L RBC 3.03 L Hgb 8.7 L Hct 26.6 L MCV 87.5 MCH 28.5 MCHC 32.6 RDW 15.3 Plt Count 192 MPV 8.5 Neut % (Auto) 47.9 Lymph % (Auto) 30.8 Pine % (Auto) 10.0 H Eos % (Auto) 9.2 H Baso % (Auto) 2.1 H Neut # (Auto) 1.6 L Lymph # (Auto) 1.0 Pine # (Auto) 0.3 Eos # (Auto) 0.3 Baso # (Auto) 0.1 WBC Differential . Differential Comment Auto diff final Sodium 142 Potassium 4.1 Chloride 107 Carbon Dioxide 21.3 Anion Gap 14 BUN 93 H Creatinine 9.57 H Estimated GFR 7 L POC Glucose Random Glucose 81 Calcium 8.0 L Urine Color Yellow Urine Clarity Clear Urine pH 5.0 Ur Specific [place] 1.012 Urine Protein 100 H Urine Glucose (UA) Negative Urine Ketones Negative Urine Occult Blood Negative Urine Nitrate Negative Urine Bilirubin Negative Urine Urobilinogen Less than 2 Ur Leukocyte Esterase Trace H Urine RBC 1 Urine WBC 8 H Urine Bacteria Rare H Micro UA Comment Culture not ind Ur Microscopic Review Not Reportable Urine Culture Comments Culture not ind Hepatitis A IgM Ab Hep Bs Antigen Hep B Core IgM Ab Hep C IgG Ab 10/20/17 10/20/17 11:30 12:16 WBC RBC Hgb Hct MCV MCH MCHC RDW Plt Count MPV Neut % (Auto) Lymph % (Auto) Pine % (Auto) Eos % (Auto) Baso % (Auto) Neut # (Auto) Lymph # (Auto) Pine # (Auto) Eos # (Auto) Baso # (Auto) WBC Differential Differential Comment Sodium Potassium Chloride Carbon Dioxide Anion Gap BUN Creatinine Estimated GFR POC Glucose 88 Random Glucose Calcium Urine Color Urine Clarity Urine pH Ur Specific [place] Urine Protein Urine Glucose (UA) Urine Ketones Urine Occult Blood Urine Nitrate Urine Bilirubin Urine Urobilinogen Ur Leukocyte Esterase Urine RBC Urine WBC Urine Bacteria Micro UA Comment Ur Microscopic Review Urine Culture Comments Hepatitis A IgM Ab Nonreactive Hep Bs Antigen Nonreactive Hep B Core IgM Ab Nonreactive Hep C IgG Ab Nonreactive <Sergio Davis - Last Filed: 10/20/17 16:15> Assessment and Plan - Plan Assessment: - Anemia with reports of hematemesis x 1 and melena with epigastric pain Symptoms began on Wednesday, has been having 2-3 episodes of melena a daily. Denies taking iron supplements and Pepto Bismol. States yesterday he had nausea with one episode of bright red blood and coffee ground emesis. Also has been having intermittent pain in his epigastric area, worse on an empty stomach, described as a burning sensation. Denies any dysphagia, odynophagia, and heartburn. Denies taking NSAIDs, ETOH, smoking, and taking blood thinners. Colonoscopy in February revealed normal colonic mucosa, few small diverticula in the sigmoid and descending colon, internal and external hemorrhoids. EGD in Dec revealed duodenitis in the second portion of the duodenum, nodular mucosa in the antrum, esophagitis in the distal esophagus, and hiatal hernia. Pathology concerning for H. Pylori infection, pt had stool sample which was consistent with this. Of note, pt did have EGD in November which revealed gastric ulcer requiring APC. - ESRD on HD- receiving dialysis this morning- likely multifactorial anemia, chronic disease, Epogen Plan: EGD today after dialysis Obtain consent Keep NPO Protonix gtt Monitor H/H Transfuse as needed Further recommendations to follow Pt has been seen and examined by myself and Dr. Davis and this note is written on his behalf <Danielle Ivan - Last Filed: 10/20/17 11:03> - Attending Attestation Seen and examined with leydi Santos as above. Will proceed with EGD today. Thank you for the consult. <Sergoi Davis - Last Filed: 10/20/17 16:15>
[2017-10-20 13:52] LABS: Hepatitits B Surface Antigen Nonreactive (Nonreactive)
[2017-10-20 13:56] LABS: Hepatitis A IgM Antibody Nonreactive (Nonreactive)
--- NOTE | 2017-10-20 15:07 | ECG ---
Date Performed: 10/19/2017 Time Performed: 12:39:30 PTAGE: 57 years EKG: Sinus rhythm POSSIBLE LEFT ATRIAL ENLARGEMENT BORDERLINE ECG PREVIOUS TRACING : 11/21/2016 13.04 DOCTOR: Jaylen Witt Interpretating Date/Time 10/20/2017 15:05:47
[2017-10-20] MEDS ORDERED: Lidocaine PF 1% Inj 5 ML Syringe INFILTRATN ONE (15:45)
--- NOTE | 2017-10-20 16:00 | GIPROC ---
[facility] [address] [facility]. [facility], [address] EGD PROCEDURE REPORT EXAM DATE: 10/20/2017 PATIENT NAME: Ajay Granado MR #: [id number] BIRTHDATE: 1960 ATTENDING: Sergio Davis MD ORDER #: [id number] NEUROLOGY TEACHER: Lexii Granado and Ely De León STATUS: inpatient INDICATIONS: The patient is a 57 yr old male here for an EGD due to hematemesis PROCEDURE PERFORMED: EGD w/ biopsy MEDICATIONS: None and Per Anesthesia. TOPICAL ANESTHETIC: none CONSENT: The patient understands the risks and benefits of the procedure and understands that these risks include, but are not limited to: sedation, allergic reaction, infection, perforation and/or bleeding. Alternative means of evaluation and treatment include, among others: physical exam, x-rays, and/or surgical intervention. The patient elects to proceed with this endoscopic procedure. medical equipment was checked for proper function. Hand hygiene and appropriate measures for infection prevention was taken. After the risks, benefits and alternatives of the procedure were thoroughly explained, Informed consent was verified, confirmed and timeout was successfully executed by the treatment team. The patient was anesthetized with topical anesthesia and the Pentax EG-[id number] endoscope was introduced through the mouth and advanced to the second portion of the duodenum. Retroflexion was performed and was normal The gastroscope was then slowly withdrawn and removed. ESOPHAGUS: The mucosa of the esophagus appeared normal. STOMACH: Multiple large non-bleeding, irregular shaped and clean-based ulcers were found in the gastric antrum. Biopsies were taken at the center of the ulcers and at edge of the ulcers. DUODENUM: The duodenal mucosa appeared normal in the bulb and second portion of the duodenum. ADVERSE EVENTS: There were no complications. IMPRESSIONS: 1. The esophagus appeared normal 2. Multiple large ulcers were found in the gastric antrum; biopsies were taken 3. Normal duodenal mucosa in the bulb and second portion of the duodenum 4. Retroflexion was performed and was normal RECOMMENDATIONS: 1. Await biopsy results. Biopsy results will not be ready for 7-10 days. If you don't hear from us in two weeks, call our office for biopsy results. 2. Avoid NSAIDS 3. Continue PPI PATIENT CONDITION: stable DISPOSITION: Observation REPEAT EXAM: Return as needed for EGD Sergio Davis MD eSigned: Sergio Davis MD 10/20/2017 4:00 PM cc: PATIENT NAME: Ajay Granado MR#: [id number]
--- NOTE | 2017-10-20 16:15 | P.DS ---
<Leonarda Rodriguez - Last Filed: 10/20/17 16:10> Date of admission: 10/19/17 14:21 Primary care physician: Yara Bolanos MD Attending physician on discharge: Son Garza Anticipated date of discharge: 10/20/17 Brief History from admission: Mr. Granado is a 57 y/o male with ESRD on HD on M/W/F, HTN, anemia of chronic disease, COPD, chronic back pain BPH and OA. [place] [facility] [place] evaluation of GI bleed. Patient reported that for the past week, he has been having upper abdominal pain and nausea. He has been able to eat and drink without much difficulty. Then yesterday he noticed that he had dark tarry stool. Then this morning he had an episode of vomiting and noted blood. Patient called his sugar cane planter machine operator, Dr. Cabello and was told to come to the emergency room for evaluation. Patient reports that he was seen in the hospital in November 2016 for similar symptoms, he did have a EGD/colonoscopy on 11/22/16 while he was here which noted LA Class A esophagitis, single ulcer ranging between 5-9mm in size was found in the gastric antrum s/p APC applied to the site with complete hemostasis achieved, gastritis in the gastric antrum, normal duodenal mucosa in the bulb and second portion of the duodenum, and the colonoscopy noted a poor prep, inadequate exam with internal/external hemorrhoids. He then had followup with GI and subsequently underwent repeat EGD on 01/05/[address] Cabello which note duodenitis as well as a hiatal hernia and a colonoscopy performed by Dr. Cabello on February 18, 2017 which noted the colonic mucosa appeared normal, there are a few small diverticula in the sigmoid and descending colon, and internal/external hemorrhoids. Patient with no chest pain or shortness of breath. Patient is currently not on any anticoagulants. Pts labs at admission noted Hgb 8.7/Hct 27.0. He had reported grossly melanotic stool in the ED. Past Medical History ESRD, HD Mondays, Wednesdays, Fridays Anemia GIB HTN Hx rib fracture Cerebral contusions Right wrist fracture Anemia of chronic disease COPD Chronic back pain Enlarged prostate Depression Osteoarthritis 2D echo (09/02/17): - Estimated ejection fraction in the range of 60-65%. - Moderate concentric left ventricular hypertrophy. - LA is [id number] dilated. - Aortic valve sclerosis is present. mean gradient = 13 mm hg consistent with mild aortic valve stenosis - Trace aortic valve regurgitation. - Trace tricuspid valve regurgitation. - The estimated pulmonary arterial pressure is 54.4 mmHg. - There is trace pericardial effusion present. Past Surgical History ORIF right wrist Appendectomy AV fistula EGD on 01/05/[address] Cabello --> duodenitis as well as a hiatal hernia. Colonoscopy on February 18, 2017 with [facility] --> the colonic mucosa appeared normal, there are a few small diverticula in the sigmoid and descending colon. There were internal hemorrhoids as well as external hemorrhoids. EGD/colonoscopy on 11/22/16 --> LA Class A esophagitis, single ulcer ranging between 5-9mm in size was found in the gastric antrum s/p APC applied to the site with complete hemostasis achieved, gastritis in the gastric antrum, normal duodenal mucosa in the bulb and second portion of the duodenum, and the colonoscopy noted a poor prep, inadequate exam with internal/external hemorrhoids. EGD/Colonoscopy (01/22/16) for anemia ---> prominent ileocecal valve, four polyps- two removed by snare and 2 fulgurated in the sigmoid, small hemorrhoid, mild gastritis. Family History Mother from colon cancer at age 50. Social History No tobacco No ETOH No illicit drug use DS: Diagnosis - Discharge Diagnosis (1) Gastric ulcer Status: Acute DS: Summary Hospital Course: GIB/Melena/Hematemesis Anemia Hx of ulcer - Pt is a 57 y/o male with ESRD on HD on //, HTN, anemia of chronic disease, COPD, chronic back pain BPH and OA. - [place] [facility] [place] for evaluation of GI bleed. Patient reported that for the past week, he has been having upper abdominal pain and nausea. He has been able to eat and drink without much difficulty. Then yesterday he noticed that he had dark tarry stool. Then this morning he had an episode of vomiting and noted blood. Patient called his sugar cane planter machine operator, Dr. Cabello and was told to come to the emergency room for evaluation. - Pt has had previous GIB in 11/2016 and he had a EGD/colonoscopy on 11/22/16 which noted LA Class A esophagitis, single ulcer ranging between 5-9mm in size was found in the gastric antrum s/p APC applied to the site with complete hemostasis achieved, gastritis in the gastric antrum, normal duodenal mucosa in the bulb and second portion of the duodenum, and the colonoscopy noted a poor prep, inadequate exam with internal/external hemorrhoids. He then had followup with GI and subsequently underwent repeat EGD on 01/05/[address] Cabello which note duodenitis as well as a hiatal hernia and a colonoscopy performed by Dr. Cabello on February 18, 2017 which noted the colonic mucosa appeared normal, there are a few small diverticula in the sigmoid and descending colon, and internal/ external hemorrhoids. - Pts labs at admission noted Hgb 8.7/Hct 27.0. He had reported grossly melanotic stool in the ED. - Consult GI, appreciate input - Pt started on Protonix gtt in the ED - Repeat labs in AM revealed stable HGB 8.7 on admission -> 8.7 on recheck - S/P EGD 10/20 which revealed: 1. The esophagus appeared normal 2. Multiple large ulcers were found in the gastric antrum; biopsies were taken 3. Normal duodenal mucosa in the bulb and second portion of the duodenum 4. Retroflexion was performed and was normal Recommendations per GI 1. Await biopsy results. Biopsy results will not be ready for 7-10 days. If you don't hear from us in two weeks, call our office for biopsy results. 2. Avoid NSAIDS 3. Continue PPI - Discussed with GI NICOLAS Santos cleared patient for DC with GI follow up - Supportive care - DVT prophylaxis with SCDs ESRD on HD - Pt follows with Dr. Bar, and he will be consulted - He receives HD on - Pt is being evaluated for renal transplant as well. HTN, poorly controlled - Resume home BP meds - PRN clonidine - PRN Vasotec - Time Spent with Patient Total time spent providing and/or coordinating discharge services: Greater than 30 minutes - Quality: VTE Deep Vein Thrombosis/Pulmonary Embolism Present on Admission: No Exam Vital signs: Vital Signs 10/19/17 16:29 10/19/17 20:00 10/20/17 00:49 Temperature 98.6 F 97.8 F Pulse Rate 76 71 76 Respiratory Rate 16 20 18 Blood Pressure 192/89 H 175/86 H 169/79 H Pulse Oximetry 98 99 97 10/20/17 04:55 10/20/17 08:00 10/20/17 09:35 Temperature 98.4 F 98.6 F Pulse Rate 79 71 Respiratory Rate 18 18 Blood Pressure 168/79 H 183/85 H Pulse Oximetry 96 96 96 Intake & Output 10/19/17 10/20/17 10/20/17 18:59 06:59 18:59 Intake Total 1035 / 1035 100 / 100 150 / 150 Output Total 400 / 400 3500 / 3500 Balance 1035 / 1035 -300 / -300 -3350 / -3350 Weight 104.326 kg 104 kg Intake: IV 1035 / 1035 100 / 100 100 / 100 Protonix Inj 80 MG In NS Inj 100 / 100 100 / 100 100 ML @ 10 mls/hr IV.CONT CONT ARELY Rx#:[id number] Protonix Inj 80 MG In NS Inj 35 35 / 35 ML @ 420 mls/hr IV.SIG BOLUS ONE Rx#:[id number] NS Inj 1,000 ML @ Wide Open IV. 1000 / 1000 SIG BOLUS ONE Rx#:[id number] Anesthesia Amount 50 / 50 Output: Urine 400 / 400 Hemodialysis Amount 3500 / 3500 Other: Date of Last Bowel Movement 10/18/17 10/19/17 10/19/17 Narrative: GENERAL: NAD, AAOx3 SKIN: Warm and dry. HEENT: Atraumatic. Normocephalic. No scleral icterus. No injection or drainage. No nasal bleeding or discharge. Mucous membranes pink and moist. CARDIO: Regular rate and rhythm. RESP: No accessory muscle use. Clear to auscultation. Breath sounds equal bilaterally. ABD: +BS, soft, non-tender, nondistended. EXT: AVF in LUE NEURO: Awake and alert. No obvious cranial nerve deficits. Motor grossly within normal limits. Five out of 5 muscle strength in the arms and legs. Normal speech. PSYCH: Appropriate mood and affect; insight and judgment normal. Results Procedures completed during hospitalization: EGD 10/20/17 Pending studies at discharge: Pending at discharge 10/20/17 Surgical [PTH] Routine Labs on day of discharge: Labs from last 24 hours 10/20/17 10/20/17 10/20/17 12:16 11:30 07:28 WBC RBC Hgb Hct MCV MCH MCHC RDW Plt Count MPV Neut % (Auto) Lymph % (Auto) Desha % (Auto) Eos % (Auto) Baso % (Auto) Neut # (Auto) Lymph # (Auto) Desha # (Auto) Eos # (Auto) Baso # (Auto) WBC Differential Differential Comment Sodium 142 Potassium 4.1 Chloride 107 Carbon Dioxide 21.3 Anion Gap 14 BUN 93 H Creatinine 9.57 H Estimated GFR 7 L POC Glucose 88 Random Glucose 81 Calcium 8.0 L Urine Color Urine Clarity Urine pH Ur Specific [place] Urine Protein Urine Glucose (UA) Urine Ketones Urine Occult Blood Urine Nitrate Urine Bilirubin Urine Urobilinogen Ur Leukocyte Esterase Urine RBC Urine WBC Urine Bacteria Micro UA Comment Ur Microscopic Review Urine Culture Comments Hepatitis A IgM Ab Nonreactive Hep Bs Antigen Nonreactive Hep B Core IgM Ab Nonreactive Hep C IgG Ab Nonreactive 10/20/17 10/19/17 07:28 14:40 WBC 3.4 L RBC 3.03 L Hgb 8.7 L Hct 26.6 L MCV 87.5 MCH 28.5 MCHC 32.6 RDW 15.3 Plt Count 192 MPV 8.5 Neut % (Auto) 47.9 Lymph % (Auto) 30.8 Desha % (Auto) 10.0 H Eos % (Auto) 9.2 H Baso % (Auto) 2.1 H Neut # (Auto) 1.6 L Lymph # (Auto) 1.0 Desha # (Auto) 0.3 Eos # (Auto) 0.3 Baso # (Auto) 0.1 WBC Differential . Differential Comment Auto diff final Sodium Potassium Chloride Carbon Dioxide Anion Gap BUN Creatinine Estimated GFR POC Glucose Random Glucose Calcium Urine Color Yellow Urine Clarity Clear Urine pH 5.0 Ur Specific [place] 1.012 Urine Protein 100 H Urine Glucose (UA) Negative Urine Ketones Negative Urine Occult Blood Negative Urine Nitrate Negative Urine Bilirubin Negative Urine Urobilinogen Less than 2 Ur Leukocyte Esterase Trace H Urine RBC 1 Urine WBC 8 H Urine Bacteria Rare H Micro UA Comment Culture not ind Ur Microscopic Review Not Reportable Urine Culture Comments Culture not ind Hepatitis A IgM Ab Hep Bs Antigen Hep B Core IgM Ab Hep C IgG Ab - Impressions ITS Impressions Abdomen/Pelvis CT 10/19/17 12:23 CONCLUSION: 1. No evidence of acute process in the abdomen or pelvis. 2. Cardiomegaly with small bilateral effusions. 3. Stable calcification lower pole of the left kidney. 4. Stable small nonspecific lymph nodes within the retroperitoneum. Chest X-Ray 10/19/17 12:23 CONCLUSION: Cardiomegaly with mild vascular congestion. No evidence of pulmonary edema or consolidating infiltrate. <Son Garza - Last Filed: 11/13/17 15:44> Date of admission: 10/19/17 14:21 Primary care physician: Yara Bolanos MD DS: Diagnosis - Discharge Diagnosis (1) GI (gastrointestinal bleed) Status: Acute (2) ESRD (end stage renal disease) on dialysis Status: Acute (3) HTN (hypertension) Status: Acute DS: Summary Hospital Course: Patient examined. Assessment and plan formulated with Leonarda Rodriguez PA-C. I agree with the above. - Time Spent with Patient Total time spent providing and/or coordinating discharge services: Results Completed studies during hospitalization: Pending at discharge 10/20/17 07:26 Surgical [PTH] Routine - Impressions ITS Impressions Abdomen/Pelvis CT 10/19/17 12:23 CONCLUSION: 1. No evidence of acute process in the abdomen or pelvis. 2. Cardiomegaly with small bilateral effusions. 3. Stable calcification lower pole of the left kidney. 4. Stable small nonspecific lymph nodes within the retroperitoneum. Chest X-Ray 10/19/17 12:23 CONCLUSION: Cardiomegaly with mild vascular congestion. No evidence of pulmonary edema or consolidating infiltrate. Discharge Plan - Discharge Order Discharge Orders: Discharge Order (Routine); Ordered 10/20/17 Ordered By: Leonarda Rodriguez - Discharge Details Anticipated Discharge Date: 10/20/17 - Physicians Team Primary Care Provider: Yara Bolanos Attending Provider: Son Garza Other Providers: Sergio Davis MD ; Corey Bar MD
== END 2017-10-20 18:18 | disposition home or self-care (01) ==
LOC: NEPD 10:37 → NEDA 10:37 → N07 17:33
PROVIDERS: ADMIT Hospitalist; ATTEND Hospitalist